=== PATIENT | female | born 1945 | race Caucasian/White ===

== ENCOUNTER 2017-12-10 11:00 | Emergency (ER) | payer MEDICARE ==
[~2017-12-10] VITALS: Ht 160 cm; Wt 45.4 kg
[~2017-12-10 11:00] MED LIST: ALBU90OI INH; AZIT250 PO; Augmentin 875-1 EACH PO; OXYACE5T PO; PRED20 PO; Prednisone10 MG PO; Prednisone20 MG PO; RANI150 PO; SPACE CHAMBER1 EACH MC; Zithromax250 MG PO
[2017-12-10] MEDS ORDERED: Mupirocin22 GM TOP (12:24)
[2017-12-10] MEDS ORDERED: Keflex500 MG PO (12:24)
== END 2017-12-10 12:28 | disposition home or self-care (01) ==
LOC: ER 11:00
DX: S00.86XA Insect bite (nonvenomous) of other part of head, initial encounter (principal); L08.9 Local infection of the skin and subcutaneous tissue, unspecified; J44.9 Chronic obstructive pulmonary disease, unspecified; F17.200 Nicotine dependence, unspecified, uncomplicated; Z79.51 Long term (current) use of inhaled steroids; W57.XXXA Bitten or stung by nonvenomous insect and other nonvenomous arthropods, initial encounter
CPT/HCPCS: 87070; 87075; 87205; 99282

== ENCOUNTER → 2021-06-08 | Outpatient (CLI) | payer MEDICARE ==
[~2021-06-08] MED LIST changes: +Keflex500 MG PO; +Mupirocin22 GM TOP
== END | disposition home or self-care (01) ==
LOC: LAB SHORT 12:59
DX: R35.0 Frequency of micturition (principal)
CPT/HCPCS: 87077; 87086; 87186

== ENCOUNTER → 2021-08-06 | Outpatient (CLI) | payer MEDICARE, OTHER | END | disposition home or self-care (01) | LOC: LAB 11:39 → LAB SHORT 11:39 | DX: R30.9 Painful micturition, unspecified (principal) | CPT/HCPCS: 87077; 87086; 87186 ==

== ENCOUNTER 2021-08-13 16:44 | Emergency (ER) | payer MEDICARE, OTHER ==
[~2021-08-13] VITALS: Ht 160 cm; Wt 61.2 kg
[2021-08-13] MEDS ORDERED: LISI20 PO (17:22)
[2021-08-13] MEDS ORDERED: Aspir 8181 MG PO (17:23)
[2021-08-13] MEDS ORDERED: SULFAMETHOXAZO1 EAC1 PO (17:24)
[2021-08-13 17:45] LABS: BASOPHILS ABSOLUTE AUTO 0.05 K/mm3 (0.00-0.23); BASOPHILS PERCENT AUTO 1 % (0-2); EOSINOPHILS ABSOLUTE AUTO 0.15 K/mm3 (0.00-0.68); EOSINOPHILS PERCENT AUTO 2 % (0-6); Hematocrit 36.3 % (33.0-51.0); Hemoglobin 11.5 g/dL (11.5-16.0); IMMATURE GRAN ABSOLUTE AUTO 0.02 K/mm3 (0.00-0.10); IMMATURE GRAN PERCENT AUTO 0 % (0-1); LYMPHOCYTES ABSOLUTE AUTO 1.91 K/mm3 (0.84-5.20); LYMPHOCYTES PERCENT AUTO 27 % (21-46); MONOCYTES ABSOLUTE AUTO 0.78 K/mm3 (0.16-1.47); MONOCYTES PERCENT AUTO 11 % (4-13); Mean Corpuscular HGB 32.1 pg (26.0-34.0); Mean Corpuscular HGB Conc 31.7 g/dL (31.5-36.5); Mean Corpuscular Volume 101 fL (80-100); Mean Platelet Volume 9.7 fL (9.1-12.4); NEUTROPHILS ABSOLUTE AUTO 4.11 K/mm3 (1.96-9.15); NEUTROPHILS PERCENT AUTO 59 % (41-73); Platelet Count 307 K/mm3 (150-400); RDW Coefficient Variation 11.9 % (11.7-14.2); RDW Standard Deviation 44.4 fL (35.1-46.3); Red Blood Cell Count 3.58 M/mm3 (3.80-5.20); White Blood Cell Count 7.02 K/mm3 (4.00-11.30)
[2021-08-13 18:14] LABS: Albumin, Blood 3.7 g/dL (3.4-5.0); Bilirubin, Total 0.2 mg/dL (0.1-1.0); Bun/Creatinine Ratio 25.6 (12.0-20.0); Calcium, Blood 9.3 mg/dL (8.5-10.1); Creatinine, Blood 1.21 mg/dL (0.40-1.00); Globulin, Blood 3.7 g/dL (2.2-4.0); Potassium, Blood 4.7 mmol/L (3.5-5.5); Total Protein, Blood 7.4 g/dL (6.4-8.2)
[2021-08-13] MEDS ORDERED: ELIQUIS5 M2 PO (22:08)
== END 2021-08-13 22:22 | disposition home or self-care (01) ==
LOC: ER 16:44
PROVIDERS: Physician Assistant
DX: I48.91 Unspecified atrial fibrillation (principal); I95.9 Hypotension, unspecified; J44.9 Chronic obstructive pulmonary disease, unspecified; Z87.891 Personal history of nicotine dependence
CPT/HCPCS: 36415; 71045; 80053; 84484; 85025; 93005; 93010; 96365; 99285-25; A9270; J3475; J7030

== ENCOUNTER → 2021-12-07 | Outpatient (CLI) | payer MEDICARE, OTHER ==
[~2021-12-07] MED LIST changes: +Aspir 8181 MG PO; +ELIQUIS5 M2 PO; +LISI20 PO; +SULFAMETHOXAZO1 EAC1 PO
[2021-12-07 19:42] LABS: BASOPHILS ABSOLUTE AUTO 0.04 K/mm3 (0.00-0.23); BASOPHILS PERCENT AUTO 1 % (0-2); EOSINOPHILS ABSOLUTE AUTO 0.17 K/mm3 (0.00-0.68); EOSINOPHILS PERCENT AUTO 3 % (0-6); Hemoglobin 10.4 g/dL (11.5-16.0); IMMATURE GRAN ABSOLUTE AUTO 0.04 K/mm3 (0.00-0.10); IMMATURE GRAN PERCENT AUTO 1 % (0-1); LYMPHOCYTES ABSOLUTE AUTO 2.08 K/mm3 (0.84-5.20); LYMPHOCYTES PERCENT AUTO 32 % (21-46); MONOCYTES ABSOLUTE AUTO 0.78 K/mm3 (0.16-1.47); MONOCYTES PERCENT AUTO 12 % (4-13); Mean Corpuscular HGB 31.6 pg (26.0-34.0); Mean Corpuscular HGB Conc 29.7 g/dL (31.5-36.5); Mean Corpuscular Volume 106 fL (80-100); Mean Platelet Volume 9.6 fL (9.1-12.4); NEUTROPHILS ABSOLUTE AUTO 3.39 K/mm3 (1.96-9.15); NEUTROPHILS PERCENT AUTO 52 % (41-73); Platelet Count 365 K/mm3 (150-400); RDW Coefficient Variation 12.5 % (11.7-14.2); RDW Standard Deviation 48.9 fL (35.1-46.3); Red Blood Cell Count 3.29 M/mm3 (3.80-5.20)
[2021-12-07 19:56] LABS: Albumin, Blood 3.5 g/dL (3.4-5.0); Bilirubin, Total 0.2 mg/dL (0.1-1.0); Bun/Creatinine Ratio 36.2 (12.0-20.0); Calcium, Blood 10.1 mg/dL (8.5-10.1); Creatinine, Blood 0.66 mg/dL (0.40-1.00); Globulin, Blood 3.4 g/dL (2.2-4.0); Potassium, Blood 5.3 mmol/L (3.5-5.5); Total Protein, Blood 6.9 g/dL (6.4-8.2)
== END | disposition home or self-care (01) ==
LOC: LAB SHORT 17:00 → LAB 17:00
PROVIDERS: Family Medicine; Student in an Organized Health Care Education/Training Program
DX: R60.0 Localized edema (principal); Z79.899 Other long term (current) drug therapy
CPT/HCPCS: 80053; 83880; 85025

== ENCOUNTER 2022-03-08 11:57 | Inpatient (IN) | payer MEDICARE, OTHER ==
[~2022-03-08] VITALS: Ht 160 cm; Wt 64.0 kg
[2022-03-08 13:43] LABS: BASOPHILS PERCENT AUTO 1 % (0-2); EOSINOPHILS ABSOLUTE AUTO 0.02 K/mm3 (0.00-0.68); EOSINOPHILS PERCENT AUTO 0 % (0-6); Hematocrit 33.4 % (33.0-51.0); Hemoglobin 10.5 g/dL (11.5-16.0); IMMATURE GRAN ABSOLUTE AUTO 0.15 K/mm3 (0.00-0.10); IMMATURE GRAN PERCENT AUTO 1 % (0-1); LYMPHOCYTES ABSOLUTE AUTO 1.01 K/mm3 (0.84-5.20); LYMPHOCYTES PERCENT AUTO 5 % (21-46); MONOCYTES ABSOLUTE AUTO 2.61 K/mm3 (0.16-1.47); MONOCYTES PERCENT AUTO 14 % (4-13); Mean Corpuscular HGB 31.3 pg (26.0-34.0); Mean Corpuscular HGB Conc 31.4 g/dL (31.5-36.5); Mean Corpuscular Volume 100 fL (80-100); Mean Platelet Volume 10.2 fL (9.1-12.4); NEUTROPHILS ABSOLUTE AUTO 15.14 K/mm3 (1.96-9.15); NEUTROPHILS PERCENT AUTO 80 % (41-73); Platelet Count 396 K/mm3 (150-400); RDW Coefficient Variation 12.3 % (11.7-14.2); RDW Standard Deviation 44.9 fL (35.1-46.3); Red Blood Cell Count 3.35 M/mm3 (3.80-5.20); White Blood Cell Count 19.03 K/mm3 (4.00-11.30)
[2022-03-08 13:53] LABS: Albumin, Blood 3.1 g/dL (3.4-5.0); Albumin/Globulin Ratio 0.6 (0.8-1.8); Bilirubin, Total 0.2 mg/dL (0.1-1.0); Bun/Creatinine Ratio 58.8 (12.0-20.0); Calcium, Blood 10.1 mg/dL (8.5-10.1); Creatinine, Blood 0.83 mg/dL (0.40-1.00); Globulin, Blood 5.2 g/dL (2.2-4.0); Potassium, Blood 4.9 mmol/L (3.5-5.5); Total Protein, Blood 8.3 g/dL (6.4-8.2)
[2022-03-08 14:26] LABS: PCO2 Arterial 60.6 mmHg (35-45); PO2 Arterial 58.2 mmHg (80-100)
[2022-03-08 14:27] LABS: pH Blood Arterial 7.29 (7.35-7.45)
[2022-03-08 15:05] LABS: Influenza A, PCR NEGATIVE (NEGATIVE); Influenza B, PCR NEGATIVE (NEGATIVE); Resp Syncytial Virus, PCR NEGATIVE (NEGATIVE); SARS-Cov-2 (COVID-19) PCR, MMC NEGATIVE (NEGATIVE)
--- NOTE | 2022-03-08 21:14 | NUR ---
PT ARRIVES TO ICU 3 VIA GURNEY, INITIALLY ORDERED ICU STATUS HOWEVER WITH CARDIZEM INFUSING PT'S HEART RATE IS NOTED TO HAVE IMPROVED TO LOW 100S AND PRESSURES IMPROVED, MAINTAINING MAP, PULSES PRESENT X 4 EXTREMITIES. PT STATES THAT BREATHING FEELS IMPROVED WITH BIPAP IN USE, PRESSURES 14/6, FIO2 35% SATS MID 90S, LUNGS WITH DIM BASES BILAT. PT DENIES CP/PRESSURE, DENIES N/V. CAREGIVER REPORTS THAT SHE HAS LIVED WITH PT FOR APPROXIMATELY 10 MONTHS AND HAS BEEN UNABLE TO CONVINCE PT TO SHOWER/BATHE EVEN ONCE IN THE TIME THAT SHE HAS LIVED WITH HER, REQUESTS THAT NURSING STAFF MAKE BATHING A PRIORITY "I THINK SHE WILL DO IT FOR YOU AND IT WON'T BE BIG OF A DEAL" DISCUSSED VITALS AND CARDIZEM GTT WITH DR CERDA AT TIME OF PT ARRIVAL TO ICU AND ORDERS WERE OBTAINED TO TRANSFER TO PCU. EXPLAINED CHANGE OF LOCATION TO PT AND CAREGIVER.
--- NOTE | 2022-03-08 22:10 | NUR ---
TRANSFER TO PCU7 PT ARRIVED TO PCU7 AT APPROXIMATELY 2145. PT A&Ox4, ORIENTED TO CALL LIGHT, BED IN LOWEST POSITION. SpO2> 92% ON BIPAP 14/6 35%FiO2, DENIES SOB, RR IN 20's. AFIB 80-90's, BP SOFT, SBP 90's MAP> 65, CARDIZEM GTT TITRATED DOWN TO 5ml/hr AND THEN PAUSED D/T LOW SBP. PT DENIES CP/PRESSURE, DIZZINESS, N/V.
[2022-03-09 03:58] LABS: Base Excess Venous 4.2 mmol/L; Bicarbonate Venous 26.8 mmol/L (24.0-30.0); PCO2 Venous 58.4 mmHg (38-42); pH Blood Venous 7.32 (7.34-7.37)
[2022-03-09 04:38] LABS: Hemoglobin 9.6 g/dL (11.5-16.0); Mean Corpuscular HGB 31.1 pg (26.0-34.0); Mean Corpuscular Volume 100 fL (80-100); Mean Platelet Volume 10.2 fL (9.1-12.4); Platelet Count 376 K/mm3 (150-400); RDW Coefficient Variation 12.2 % (11.7-14.2); RDW Standard Deviation 44.9 fL (35.1-46.3); Red Blood Cell Count 3.09 M/mm3 (3.80-5.20); White Blood Cell Count 15.76 K/mm3 (4.00-11.30)
[2022-03-09 04:58] LABS: Bun/Creatinine Ratio 54.7 (12.0-20.0); Calcium, Blood 9.7 mg/dL (8.5-10.1); Creatinine, Blood 0.82 mg/dL (0.40-1.00); Potassium, Blood 4.9 mmol/L (3.5-5.5); Thyroid Stimulating Hormone 1.69 uIU/mL (0.360-4.800); Thyroxine (T4) 8.7 ug/dL (4.8-13.9)
--- NOTE | 2022-03-09 05:09 | NUR ---
SHIFT SUMMARY PT A&Ox4, CALLS AND COMMUNICATES NEEDS APPROPRIATELY. SpO2> 92% ON BIPAP 14/6 35%FiO2, DENIES SOB. PT CONVERTED TO SINUS IN 70's AT APPROXIMATELY 0200. BP SOFT WITH SBP MAINTAINING IN 90's, MAP> 65, PT ASYMPTOMATIC. CARDIZEM GTT STILL IN STANDBY. PT ABLE TO REST COMFORTABLY THROUGHOUT THE NIGHT, NO ACUTE EVENTS. WILL REPORT TO DAY SHIFT RN.
--- NOTE | 2022-03-09 08:10 | NUR ---
AM ASSESSMENT: Pt resting in bed with BIPAP on 10/01 with FIO2 of 35%. Biox 95%. LS coarse with exp wheezing. Pt requesting break from BIPAP. Placed on 4L per N/C, her home dose. Tolerating well and biox remaining >95%. BP stable. HR reg with tele showing NSR. BT positive. Pulses palp. Attends in place. Pt denies pain. Pt has very dry, flakey skin with visible dirt on the bottom of feet. Hair matted and dirty. Will give full bed bath today. Pt very pleasant and cooperative. Call light in reach. Will continue to monitor.
[2022-03-09] MEDS ORDERED: LISI20 PO (12:40)
[2022-03-09] MEDS ORDERED: ELIQUIS2.5 MG PO (12:40)
[2022-03-09] MEDS ORDERED: ALBU90OI INH (12:41)
[2022-03-09] MEDS ORDERED: FOLI1 PO (12:42)
[2022-03-09] MEDS ORDERED: CENTRUM SILVER1 EAC2 PO (12:42)
[2022-03-09] MEDS ORDERED: ASPI325 PO (12:43)
[2022-03-09] MEDS ORDERED: TRELEGY ELLIPT1 EAC1 INH (16:50)
--- NOTE | 2022-03-09 18:44 | NUR ---
SHift Summary: Pt sitting up at edge of bed at this time finishing dinner. Pt has done well this shift. Has been able to be on her home O2 of 4L per NC for the majority of the day. Pt came off of Bipap at around 0830 this AM, went back on around 1145, then came back off around 1400 and remained off the rest of the shift. Pt was up to shower this afternoon with 2 person assist. States that she feels much better after her shower. HR has remained in a NSR. BP has remained soft but stable. Pt denies other needs this shift. No other changes. Will reoprt to night RN.
[2022-03-10 04:05] LABS: BASOPHILS ABSOLUTE AUTO 0.07 K/mm3 (0.00-0.23); BASOPHILS PERCENT AUTO 0 % (0-2); EOSINOPHILS ABSOLUTE AUTO 0.06 K/mm3 (0.00-0.68); EOSINOPHILS PERCENT AUTO 0 % (0-6); Hematocrit 27.9 % (33.0-51.0); Hemoglobin 8.7 g/dL (11.5-16.0); IMMATURE GRAN ABSOLUTE AUTO 0.75 K/mm3 (0.00-0.10); IMMATURE GRAN PERCENT AUTO 4 % (0-1); LYMPHOCYTES ABSOLUTE AUTO 0.88 K/mm3 (0.84-5.20); LYMPHOCYTES PERCENT AUTO 5 % (21-46); MONOCYTES ABSOLUTE AUTO 1.27 K/mm3 (0.16-1.47); MONOCYTES PERCENT AUTO 7 % (4-13); Mean Corpuscular HGB 31.3 pg (26.0-34.0); Mean Corpuscular HGB Conc 31.2 g/dL (31.5-36.5); Mean Corpuscular Volume 100 fL (80-100); Mean Platelet Volume 9.5 fL (9.1-12.4); NEUTROPHILS ABSOLUTE AUTO 15.22 K/mm3 (1.96-9.15); NEUTROPHILS PERCENT AUTO 83 % (41-73); Platelet Count 409 K/mm3 (150-400); RDW Coefficient Variation 12.2 % (11.7-14.2); RDW Standard Deviation 45.8 fL (35.1-46.3); Red Blood Cell Count 2.78 M/mm3 (3.80-5.20); White Blood Cell Count 18.25 K/mm3 (4.00-11.30)
[2022-03-10 04:36] LABS: Albumin, Blood 2.6 g/dL (3.4-5.0); Albumin/Globulin Ratio 0.6 (0.8-1.8); Bilirubin, Total 0.5 mg/dL (0.1-1.0); Bun/Creatinine Ratio 64.3 (12.0-20.0); Calcium, Blood 9.8 mg/dL (8.5-10.1); Creatinine, Blood 0.78 mg/dL (0.40-1.00); Globulin, Blood 4.2 g/dL (2.2-4.0); Magnesium, Blood 2.4 mg/dL (1.6-2.4); Phosphorus, Blood 2.6 mg/dL (2.5-4.9); Potassium, Blood 4.7 mmol/L (3.5-5.5); Total Protein, Blood 6.8 g/dL (6.4-8.2)
--- NOTE | 2022-03-10 06:26 | NUR ---
NOC SHIFT SUMMARY PT ORIENTED X4, ANXIOUS ESPECIALLY WITH AMBULATION AND SOA. SR/PAC AND AFIB BRIEFLY ON TELEMETRY. RATE CONTROLLED. NO COMPLAINTS OF PAIN. REMAINS SR THIS AM. ALTERNATED BETWEEN BIPAP 14/35% AND 4L NC. INCREASED WOB AT START OF SHIFT, TRIPOD POSTURE. SATS REMAINED WNL BUT PT FELT SHE WAS UNABLE TO CATCH BREATH. DR. WADE NOTIFIED AND D/C IVF PT IS TOLERATING PO. PT PLACED ON BIPAP BY RT. UP TO BSC X1, BM X1. WILL PASS ON TO DAY RN
--- NOTE | 2022-03-10 18:01 | NUR ---
ASSUMED CARE OF PT AT 0700. PT ON BIPAP THIS AM, OFF FOR A SHORT TIME FOR BREAKFAST, THEN BACK ON BIPAP UNTIL LUNCH. PT SITTING UP TO SIDE OF THE BED FOR MOST OF THE AFTERNOON, TRIPOD POSITION ON OVERBED TABLE, OFF BIPAP WITH 4L 02 VIA NC (PT'S BASELINE). PT'S CAREGIVER IN TO VISIT HER AND STATES SHE WILL BE HER TRANSPORTATION HOME, NUMBER IS ON THE PT'S WHITE BOARD. PT/OT CONSULT AND EVAL TODAY, PT ABLE TO STAND AND PIVOT TX (PT'S BASELINE). NO OTHER CHANGES IN PT CONDITION NOTED, USES CALL LIGHT FOR NEEDS, WILL CONTINUE TO MONITOR AND GIVE REPORT TO NOC SHIFT RN.
[2022-03-11 03:53] LABS: Base Excess Venous 9.5 mmol/L; Bicarbonate Venous 32.2 mmol/L (24.0-30.0); pH Blood Venous 7.44 (7.34-7.37)
[2022-03-11 04:01] LABS: Hematocrit 26.2 % (33.0-51.0); Hemoglobin 8.4 g/dL (11.5-16.0); Mean Corpuscular HGB 32.1 pg (26.0-34.0); Mean Corpuscular HGB Conc 32.1 g/dL (31.5-36.5); Mean Corpuscular Volume 100 fL (80-100); Mean Platelet Volume 9.2 fL (9.1-12.4); Platelet Count 390 K/mm3 (150-400); RDW Coefficient Variation 12.3 % (11.7-14.2); RDW Standard Deviation 45.1 fL (35.1-46.3); Red Blood Cell Count 2.62 M/mm3 (3.80-5.20); White Blood Cell Count 15.83 K/mm3 (4.00-11.30)
[2022-03-11 04:25] LABS: Albumin, Blood 2.4 g/dL (3.4-5.0); Albumin/Globulin Ratio 0.6 (0.8-1.8); Bilirubin, Total 0.2 mg/dL (0.1-1.0); Bun/Creatinine Ratio 64.6 (12.0-20.0); Calcium, Blood 9.4 mg/dL (8.5-10.1); Creatinine, Blood 0.79 mg/dL (0.40-1.00); Globulin, Blood 3.8 g/dL (2.2-4.0); Magnesium, Blood 2.7 mg/dL (1.6-2.4); Phosphorus, Blood 3.7 mg/dL (2.5-4.9); Potassium, Blood 4.7 mmol/L (3.5-5.5); Total Protein, Blood 6.2 g/dL (6.4-8.2)
[2022-03-11 05:10] LABS: BAND PERCENT MAN 6 % (0-8); BASOPHILS PERCENT MAN 0 % (0-2); EOSINOPHILS PERCENT MAN 0 % (0-6); LYMPHOCYTES ABSOLUTE MAN 1.58 K/mm3 (0.84-5.20); LYMPHOCYTES PERCENT MAN 10 % (21-46); METAMYELOCYTE ABSOLUTE MAN 0.31 K/mm3 (0.00-0.00); METAMYELOCYTE PERCENT MAN 2 % (0-0); MONOCYTES ABSOLUTE MAN 0.63 K/mm3 (0.16-1.47); MONOCYTES PERCENT MAN 4 % (4-13); MYELOCYTE ABSOLUTE MAN 0.47 K/mm3 (0.00-0.00); MYELOCYTE PERCENT MAN 3 % (0-0); NEUTROPHILS ABSOLUTE MAN 12.82 K/mm3 (1.96-9.15); SEG NEUTROPHILS PERCENT MAN 75 % (41-73); TOTAL CELLS COUNTED 100
--- NOTE | 2022-03-11 05:28 | NUR ---
SHIFT SUMMARY ASSUMED CARE OF PT AT 2129. PT ALERT, TRIPODING IN ROOM, STATES SHE SLEEPS LIKE THIS AT HER HOUSE. ON NC 4L. RT IN ROOM TO ENCOURAGE MASK WEARING. PT AGREED TO WEAR MASK IF SHE COULD HAVE A SLEEP AID. CALL PLACED TO MD WADE. MD WADE WITH ORDERS FOR MELATONIN. PT SLEPT MOST OF NIGHT IN BED W/ MASK ON, 6L BLEED IN. WOULD DESAT TO MID 80'S WHEN MASK NEEDS ADJUSTED. CALL LIGHT IN REACH.
[2022-03-11] MEDS ORDERED: DILT120 PO (13:47)
[2022-03-11] MEDS ORDERED: CEFD300 PO (13:47)
[2022-03-11] MEDS ORDERED: Prednisone20 MG PO (13:50)
[2022-03-11] MEDS ORDERED: VISBIOME 112.51 EACH PO (13:51)
--- NOTE | 2022-03-11 14:56 | NUR ---
ASSUMED CARE OF PT AT 0700. PT DOING WELL TODAY, ON BASELINE O2, ABLE TO STAND AND PIVOT TRANSFER FROM BED TO COMMODE. PT STATES SHE FEELS COMFORTABLE GOING HOME TODAY IF DISCHARGED. DISCHARGE ORDERS RECEIVED, RX SENT TO [facility] PER PT REQUEST. PT'S CAREGIVER/TRANSPORTATION NOTIFIED AND WILL BRING IN PT'S HOME O2. 1450: PT DISCHARGED HOME VIA WHEELCHAIR, ON HOME 02 4L NC, ALL BELONGINGS SENT WITH PT. DISCHARGE INFORMATION REVIEWED WITH PT AND CAREGIVER AT BEDSIDE INCLUDING FOLLOW UP APPOINTMENTS, MEDICATION LIST, NEW MEDICATIONS AND EDUCATION. PT AND CAREGIVER VERBALIZE UNDERSTANDING AND HAVE NO QUESTIONS OR CONCERNS AT THIS TIME. NO FURTHER DISCHARGE NEEDS IDENTIFIED AT THIS TIME.
== END 2022-03-11 14:50 | disposition home or self-care (01) | DRG 193 ==
LOC: ER 11:57 → ERHOLD 17:14 → PCU 17:14 → ICUE 19:38 → PCU 21:38
PROVIDERS: Emergency Medicine; Family Medicine; Physician Assistant; ADMIT Internal Medicine
PROC: 5A09357 Assistance with Respiratory Ventilation, Less than 24 Consecutive Hours, Continuous Positive Airway Pressure (ICD-10-PCS; principal; 2022-03-08)
DX: J18.9 Pneumonia, unspecified organism (principal); J96.21 Acute and chronic respiratory failure with hypoxia; J96.22 Acute and chronic respiratory failure with hypercapnia; J44.1 Chronic obstructive pulmonary disease with (acute) exacerbation; J44.0 Chronic obstructive pulmonary disease with (acute) lower respiratory infection; I50.30 Unspecified diastolic (congestive) heart failure; I48.91 Unspecified atrial fibrillation; I95.9 Hypotension, unspecified; F41.9 Anxiety disorder, unspecified; Z20.822 Contact with and (suspected) exposure to COVID-19; F17.210 Nicotine dependence, cigarettes, uncomplicated; K44.9 Diaphragmatic hernia without obstruction or gangrene; K21.9 Gastro-esophageal reflux disease without esophagitis; Z79.51 Long term (current) use of inhaled steroids; Z99.81 Dependence on supplemental oxygen; Z79.82 Long term (current) use of aspirin; Z79.811 Long term (current) use of aromatase inhibitors; Z79.899 Other long term (current) drug therapy
CPT/HCPCS: 0241U; 36415; 36600; 71046; 80048; 80053; 82803; 83605; 83690; 83735; 83880; 84100; 84436; 84443; 84484; 85025; 85027; 87040; 93005; 93010; 93308; 93321; 94640; 94660; 94664; 94760; 94762; 96365; 96366; 96375; 96376; 97110; 97162; 97165; 97530; 97535; 99285-25; A9270; J0153; J0456; J0696; J1650; J2930; J7030; J7050; J7120

== ENCOUNTER 2023-03-11 11:59 | Inpatient (IN) | payer MEDICARE, OTHER ==
[~2023-03-11] VITALS: Ht 157.5 cm; Wt 47.6 kg
[2023-03-11] VITALS (8 sets, daily range): BP systolic 96–133; BP diastolic 49–89
[~2023-03-11 11:59] MED LIST changes: +ASPI325 PO; +CEFD300 PO; +CENTRUM SILVER1 EAC2 PO; +DILT120 PO; +ELIQUIS2.5 MG PO; +FOLI1 PO; +TRELEGY ELLIPT1 EAC1 INH; +VISBIOME 112.51 EACH PO
[2023-03-11 12:55] LABS: Bicarbonate Venous 32.7 mmol/L (24.0-30.0); PCO2 Venous 58.1 mmHg (38-42); pH Blood Venous 7.39 (7.34-7.37)
[2023-03-11 12:55] LABS: BASOPHILS ABSOLUTE AUTO 0.03 K/mm3 (0.00-0.23); BASOPHILS PERCENT AUTO 0 % (0-2); EOSINOPHILS ABSOLUTE AUTO 0.18 K/mm3 (0.00-0.68); EOSINOPHILS PERCENT AUTO 2 % (0-6); Hematocrit 21.2 % (33.0-51.0); Hemoglobin 6.5 g/dL (11.5-16.0); IMMATURE GRAN ABSOLUTE AUTO 0.03 K/mm3 (0.00-0.10); IMMATURE GRAN PERCENT AUTO 0 % (0-1); LYMPHOCYTES ABSOLUTE AUTO 2.55 K/mm3 (0.84-5.20); LYMPHOCYTES PERCENT AUTO 28 % (21-46); MONOCYTES ABSOLUTE AUTO 0.81 K/mm3 (0.16-1.47); MONOCYTES PERCENT AUTO 9 % (4-13); Mean Corpuscular HGB 32.7 pg (26.0-34.0); Mean Corpuscular HGB Conc 30.7 g/dL (31.5-36.5); Mean Corpuscular Volume 107 fL (80-100); Mean Platelet Volume 10.1 fL (9.1-12.4); NEUTROPHILS ABSOLUTE AUTO 5.45 K/mm3 (1.96-9.15); NEUTROPHILS PERCENT AUTO 60 % (41-73); Platelet Count 278 K/mm3 (150-400); RDW Coefficient Variation 13.2 % (11.7-14.2); RDW Standard Deviation 50.8 fL (35.1-46.3); Red Blood Cell Count 1.99 M/mm3 (3.80-5.20); White Blood Cell Count 9.05 K/mm3 (4.00-11.30)
[2023-03-11 13:18] LABS: Albumin, Blood 3.5 g/dL (3.4-5.0); Albumin/Globulin Ratio 1.1 (0.8-1.8); Bilirubin, Total 0.2 mg/dL (0.1-1.0); Bun/Creatinine Ratio 41.8 (12.0-20.0); Calcium, Blood 9.9 mg/dL (8.5-10.1); Creatinine, Blood 1.34 mg/dL (0.40-1.00); Globulin, Blood 3.1 g/dL (2.2-4.0); Magnesium, Blood 2.1 mg/dL (1.6-2.4); Potassium, Blood 5.8 mmol/L (3.5-5.5); Total Protein, Blood 6.6 g/dL (6.4-8.2)
[2023-03-11 14:08] LABS: International Normalized Ratio 1.06; Prothrombin Time Results 11.1 Sec (9.7-11.5)
[2023-03-11 15:21] LABS: Adenovirus Not Detected (NOT DETECT)
[2023-03-11 15:22] LABS: Bordetella pertussis Not Detected (NOT DETECT); Chlamydophila pneumoniae Not Detected (NOT DETECT); Coronavirus 229E Not Detected (NOT DETECT); Coronavirus HKU1 Not Detected (NOT DETECT); Coronavirus NL63 Not Detected (NOT DETECT); Coronavirus OC43 Not Detected (NOT DETECT); Human Metapneumovirus Not Detected (NOT DETECT); Human Rhinovirus/Enterovirus Not Detected (NOT DETECT); Influenza A/2009-H1 Not Detected (NOT DETECT); Influenza A/H1 Not Detected (NOT DETECT); Influenza A/H3 Not Detected (NOT DETECT); Influenza B Not Detected (NOT DETECT); Mycoplasma pneumoniae Not Detected (NOT DETECT); Parainfluenza Virus 1 Not Detected (NOT DETECT); Parainfluenza Virus 2 Not Detected (NOT DETECT); Parainfluenza Virus 3 Not Detected (NOT DETECT); Parainfluenza Virus 4 Not Detected (NOT DETECT); Respiratory Syncytial Virus Not Detected (NOT DETECT); SARS-Cov-2 (COVID-19), BioFire Not Detected (NOT DETECT)
--- NOTE | 2023-03-11 18:54 | NUR ---
PT ARRIVED IN THE ROOM FROM [facility], REPORT RECEIVED FROM MEHRDAD US. PT WAS TRANSFERRED TO BED VIA SLIDE SHEET. PT ALERT AND ORIENTED X3, FORGETFUL AT TIMES. PT IS HERE FOR ACUTE RESPI FAILURE PT ON 5L OF O2 (HOME O2). VITALS HRR ST 90-100'S, SBP 100'S, SATS ABOVE 95% ON 5L OF O2 SOME SOB WITH EXERTION. AFEBRILE. UPON ARRIVAL PT REQUESTED TO USE BEDSIDE COMMODE PT ABLE TO TRANSFER VIA 1PA STAND AND TRANSFER WITH COUPLE STEPS, PT A LITTLE UNSTEADY AND WEAK. PT STATED SHE SMOKES 4 CIGARETTES A DAY, NICOTINE PATCH ORDERED AND PLACED. PT HAD A BOWEL MOVEMENT FORMED BLACK BROWN IN COLOR AND VOIDED IN THE COMMODE URINE WAS DARK. PT HAS A LOT OF DRY AND SKIN PEELING OFF PT AGREED TO GET HER IN THE SHOWER PT STATED SHE HASNT SHOWERED IN 6 MONTHS. PT GOT BACK IN BED, 1PRBC WAS WAS INFUSED. PT ATE DINNER WITH NO ISSUES. SCD'S PLACED. PT NOW RESTING IN BED WITH CALL LIGHTS IN REACH, WILL REPORT TO ONCOMING SHIFT
--- NOTE | 2023-03-11 20:49 | NUR ---
ASSUMED PT CARE FROM CHRISTIANA RN ON HI. A&OX4, APPEARS FORGETFUL AT TIMES. DENIES CHEST PAIN/PRESSURE. HR SR IN 90'S. BP STABLE, SEE RECORDED VITAL SIGNS. O2 SATS > 92% ON 5 LPM, BASELINE PER PT. REPORTS HAVING " A LITTLE BIT" OF SOB, DOES NOT APPEAR IN ANY DISTRESS. WILL MONITOR. LUNG JOHNS CLEAR. DENIES ANY NASUEA. CALL LIGHT IN REACH. BED IN LOW POSITION. BED ALARM ON.
[2023-03-12] VITALS (7 sets, daily range): BP systolic 83–122; BP diastolic 39–57
[2023-03-12 03:46] LABS: Magnesium, Blood 1.9 mg/dL (1.6-2.4)
[2023-03-12 03:48] LABS: Alanine Aminotransfer (ALT/SGP 15 U/L (12-78); Alk Phos 46 U/L (50-136); Anion Gap 3 mmol/L (6-16); Aspartate Aminotrans (AST/SGOT 16 U/L (12-37); Bilirubin, Total <0.1 mg/dL (0.1-1.0); Blood Urea Nitrogen 51 mg/dL (8-24); Bun/Creatinine Ratio 50.5 (12.0-20.0); CO2, Blood 33 mmol/L (21-32); Calcium, Blood 8.9 mg/dL (8.5-10.1); Chloride, Blood 108 mmol/L (98-108); Creatinine, Blood 1.01 mg/dL (0.40-1.00); Globulin, Blood 2.9 g/dL (2.2-4.0); Glomerular Filtration Rate 57 (60-); Glucose, Blood 161 mg/dL (70-99); Potassium, Blood 5.1 mmol/L (3.5-5.5); Sodium, Blood 144 mmol/L (136-145); Total Protein, Blood 5.9 g/dL (6.4-8.2)
[2023-03-12 05:19] LABS: BASOPHILS ABSOLUTE AUTO 0.01 K/mm3 (0.00-0.23); BASOPHILS PERCENT AUTO 0 % (0-2); EOSINOPHILS PERCENT AUTO 0 % (0-6); Hematocrit 23.7 % (33.0-51.0); Hemoglobin 7.3 g/dL (11.5-16.0); IMMATURE GRAN ABSOLUTE AUTO 0.05 K/mm3 (0.00-0.10); IMMATURE GRAN PERCENT AUTO 1 % (0-1); LYMPHOCYTES ABSOLUTE AUTO 1.04 K/mm3 (0.84-5.20); LYMPHOCYTES PERCENT AUTO 11 % (21-46); MONOCYTES ABSOLUTE AUTO 0.19 K/mm3 (0.16-1.47); MONOCYTES PERCENT AUTO 2 % (4-13); Mean Corpuscular HGB 30.7 pg (26.0-34.0); Mean Corpuscular HGB Conc 30.8 g/dL (31.5-36.5); Mean Platelet Volume 10.8 fL (9.1-12.4); NEUTROPHILS ABSOLUTE AUTO 7.83 K/mm3 (1.96-9.15); NEUTROPHILS PERCENT AUTO 86 % (41-73); Platelet Count 230 K/mm3 (150-400); RDW Standard Deviation 65.4 fL (35.1-46.3); Red Blood Cell Count 2.38 M/mm3 (3.80-5.20); White Blood Cell Count 9.12 K/mm3 (4.00-11.30)
[2023-03-12 05:21] LABS: Mean Corpuscular Volume 100 fL (80-100)
--- NOTE | 2023-03-12 05:31 | NUR ---
SHIFT SUMMARY: NO ACUTE CHANGES NOTED DURING THIS SHIFT. O2 LPM DECREASED TO 3 LPM WHILE SLEEPING DUE TO SATS IN HIGH 90'S, PT CONTIUES TO SAT > 92%. UP TO BSC WITH 1 ASSIST TO VOID CLEAR, YELLOW URINE. SOB WITH EXERTION, RESOLVES WHEN RETURNED TO BED. CALL LIGHT IN REACH. IN BED LOW POSITION. BED ALARM ON.
--- NOTE | 2023-03-12 12:57 | NUR ---
CARE NOTE BP NOTED TO BE 88/47 WITH MAP OF 59, DR. FRIEND MADE AWARE SO MEDICATION ADJUSTMENTS CAN BE MADE APPROPRIATE/NECESSARY. PT DENIES FEELING LIGHTHEADED/DIZZY. WILL CONTINUE TO MONITOR.
[2023-03-12] MEDS ORDERED: CARTIA XT120 M9 PO (14:31)
[2023-03-12] MEDS ORDERED: Ventolin/Prove6.7 GM (14:40)
[2023-03-12 16:03] LABS: Percent Saturation 17.9 % (15.0-50.0)
[2023-03-12 16:38] LABS: Thyroid Stimulating Hormone 1.19 uIU/mL (0.360-4.800)
--- NOTE | 2023-03-12 17:26 | NUR ---
SHIFT SUMMARY PT IS ALERT AND ORIENTED X 4 BUT FORGETFUL AT TIMES. SHE IS ABLE TO MAKE HER NEEDS KNOWN. VSS, SPO2 MAINTAINED 92-95% VIA 3L NC, PT NOTED TO USE 5L NC AT BASELINE. HR NOTED TO BE SINUS RYTHM 80-90 PER TELE MONITORING. SHE HAS DENIED FEELINGS OF CHEST PAIN/PRESSURE, NAUSEA/VOMITTING AND DIZZINESS. SHE REPORTED FEELING SOB WHICH IS SIMILAR TO HER BASELINE. SHE IS A SBA W/ FWW TO BEDSIDE COMMODE AND APPEARS RATHER WEAK. SHE WAS ENCOURAGED BY THIS RN TO SIT UP IN CHAIR, PARTICULARLY FOR MEALS AND REFUSED. SHE WAS EDUCATED BY THIS RN REGARDING ACTIVITY AND DECONDITIONING WELL PREVENTION OF SKIN BREAKDOWN BUT DENIED WANTING TO SIT UP IN CHAIR HOWEVER, SHE DID SIT UP AT THE EDGE OF THE BED. SHE EXPRESSED CONCERNS REGARDING GOING HOME AND NOT HAVING A RELIABLE CAREGIVER, DR. SOW MADE AWARE AND INFORMATICS EDUCATOR CONSULT PLACED. THE PT REPORTED THAT SHE DOES NOT PAY HER CURRENT CAREGIVER BUT THEY HAVE A LEGAL/NOTARIZED AGREEMENT THAT THE CAREGIVER IS TO PROVIDE ADEQUATE CARE AND THEN WHEN THE PT PASSES, THE CAREGIVER WILL RECEIVE HER HOUSE. IV IS SALINE LOCKED. PAIN IN LOW BACK WAS REPORTED, PLEASE SEE EMAR FOR PAIN MANAGEMENT. CALL LIGHT IS W/IN REACH.
[2023-03-13] VITALS (8 sets, daily range): BP systolic 71–117; BP diastolic 32–64
[2023-03-13 01:27] LABS: Stool Occult Blood Guaiac 1 Pos (Neg)
[2023-03-13 02:57] LABS: Source, Urine Clean Catch
[2023-03-13 03:19] LABS: Bilirubin, Urine Neg (Neg); Blood, Urine 5+ (Neg); Glucose Qualitative, Urine Neg (Neg); Ketones, Urine Neg (Neg); Leukocyte Esterase, Urine 1+ (Neg); Nitrite, Urine Neg (Neg); Protein, Urine 1+ (Neg); Urobilinogen, Urine NORM (Normal)
[2023-03-13 04:11] LABS: BASOPHILS ABSOLUTE AUTO 0.01 K/mm3 (0.00-0.23); BASOPHILS PERCENT AUTO 0 % (0-2); EOSINOPHILS PERCENT AUTO 0 % (0-6); Hematocrit 20.1 % (33.0-51.0); Hemoglobin 6.3 g/dL (11.5-16.0); IMMATURE GRAN ABSOLUTE AUTO 0.12 K/mm3 (0.00-0.10); IMMATURE GRAN PERCENT AUTO 1 % (0-1); LYMPHOCYTES ABSOLUTE AUTO 0.65 K/mm3 (0.84-5.20); LYMPHOCYTES PERCENT AUTO 3 % (21-46); MONOCYTES ABSOLUTE AUTO 0.53 K/mm3 (0.16-1.47); MONOCYTES PERCENT AUTO 3 % (4-13); Mean Corpuscular HGB 30.9 pg (26.0-34.0); Mean Corpuscular HGB Conc 31.3 g/dL (31.5-36.5); Mean Corpuscular Volume 99 fL (80-100); Mean Platelet Volume 10.3 fL (9.1-12.4); NEUTROPHILS ABSOLUTE AUTO 17.82 K/mm3 (1.96-9.15); NEUTROPHILS PERCENT AUTO 93 % (41-73); Platelet Count 202 K/mm3 (150-400); RDW Coefficient Variation 17.6 % (11.7-14.2); Red Blood Cell Count 2.04 M/mm3 (3.80-5.20); White Blood Cell Count 19.13 K/mm3 (4.00-11.30)
[2023-03-13 04:32] LABS: Anion Gap 3 mmol/L (6-16); Blood Urea Nitrogen 45 mg/dL (8-24); Bun/Creatinine Ratio 43.7 (12.0-20.0); CO2, Blood 34 mmol/L (21-32); Calcium, Blood 8.9 mg/dL (8.5-10.1); Chloride, Blood 108 mmol/L (98-108); Creatinine, Blood 1.03 mg/dL (0.40-1.00); Glomerular Filtration Rate 56 (60-); Glucose, Blood 153 mg/dL (70-99); Phosphorus, Blood 3.7 mg/dL (2.5-4.9); Potassium, Blood 4.3 mmol/L (3.5-5.5); Sodium, Blood 145 mmol/L (136-145)
[2023-03-13 04:49] LABS: Appearance, Urine Clear (Clear); Color, Urine Yellow (P-Yellow)
[2023-03-13 04:50] LABS: Amorphous Light (0-Heavy); Bacteria Few /hpf; Red Blood Cells, Urine 0-2 /hpf (0-2); Squamous Epithelial Cells Few /hpf (Few)
[2023-03-13 04:51] LABS: Granular Casts 0-2 /lpf (0)
--- NOTE | 2023-03-13 10:46 | NUR ---
CARE NOTE [id number] REQUESTED FROM PHARMACY BY THIS RN AT APPROX. 1040. PT ENCOURAGED TO PERFORM CERTAIN ADL'S SUCH REPOSITIONING PILLOWS BEHIND HER HEAD AND REACHING FOR HER SIDE TABLE WHICH IS W/IN REACH. CALL LIGHT IN PLACE, PT IS NOW BACK IN BED.
[2023-03-13 12:55] LABS: Hematocrit 27.4 % (33.0-51.0); Hemoglobin 9.4 g/dL (11.5-16.0)
--- NOTE | 2023-03-13 17:01 | NUR ---
SHIFT SUMMARY PT IS ALERT TO SELF, DAY, PLACE BUT FORGETFUL TO SITUATION. WHEN SHE WOKE UP FROM HER AFTERNOON NAP SHE STATED "YOU'RE THE FIRST PERSON THAT'S BEEN IN HERE ALL DAY," BUT WAS ABLE TO ANSWER OTHER ORIENTATION QUESTIONS APPROPRIATELY. THE CAREGIVER THAT THE PT REPORTED HAVING LEFT FOR VACATION W/OUT PROVIDING REPLACEMENT IS CURRENTLY AT THE BEDSIDE. THIS RN WENT INTO PT ROOM TO CHECK IN AND THE PT AND HER CAREGIVER APPEARED TO BE HAVING A CONVERSATION PERTAINING TO HER STATUS. VSS HAVE BEEN STABLE T/O SHIFT. 1 UNIT OF PRBC'S TRANSFUSED PER ORDERS. PG IN JACKIE IS SALINE LOCKED. L FOREARM IV INFILTRATED DURING PRBC INFUSION, FOREARM APPEARS BRUISED BUT PT DENIES PAIN. PT HAS BEEN UP TO BEDSIDE COMMODE TO VOID, BLACK SMEARS NOTED IN ATTENDS PRIOR TO ATTENDS CHANGE. MEPILEX DRESSING IS IN PLACE OVER COCCYX. ABRASION ON R HIP/BUTTOCK AREA IS ALSO IN PLACE AND IS D/C/I AND WAS REPLACED BY THIS RN. PT HAS BEEN ENCOURAGED TO SIT UP IN CHAIR BUT REFUSES. SHE HAD 1 FORMED SMALL BLACK BM TODAY. CAREGIVER HAS NOW LEFT AND PT IS NOW SITTING UP IN BED, CALL LIGHT IN REACH.
--- NOTE | 2023-03-13 18:58 | NUR ---
CARE NOTE AT APPROX. 1840 THIS RN NOTICED CALL LIGHT ON PCU 13, THIS RN WAS WALKING INTO DIFFERENT PT ROOM TO RESPOND TO MORE EMERGENT NEEDS AND THEN THIS RN HEARD PT IN PCU 13 YELL OUT "HELP." THIS RN RAN INTO PT ROOM AND PT STATED THAT SHE HAD TO PEE. FOR THE SECOND TIME THIS RN EDUCATED THE PT ON APPROPRIATE CALL LIGHT USE AND NOT TO CALL OUT FOR HELP UNLESS IT IS AN EMERGANCY, THAT YELLING HELP TO PEE IS INAPPROPRIATE AND THAT STAFF MEMBERS RESPOND TO CALL LIGHTS QUICKLY THEY CAN.
[2023-03-14] VITALS (7 sets, daily range): BP systolic 91–142; BP diastolic 43–61
[2023-03-14 05:02] LABS: BASOPHILS ABSOLUTE AUTO 0.02 K/mm3 (0.00-0.23); BASOPHILS PERCENT AUTO 0 % (0-2); EOSINOPHILS PERCENT AUTO 0 % (0-6); Hematocrit 24.8 % (33.0-51.0); Hemoglobin 8.1 g/dL (11.5-16.0); IMMATURE GRAN ABSOLUTE AUTO 0.14 K/mm3 (0.00-0.10); IMMATURE GRAN PERCENT AUTO 1 % (0-1); LYMPHOCYTES ABSOLUTE AUTO 0.53 K/mm3 (0.84-5.20); LYMPHOCYTES PERCENT AUTO 3 % (21-46); MONOCYTES ABSOLUTE AUTO 0.51 K/mm3 (0.16-1.47); MONOCYTES PERCENT AUTO 3 % (4-13); Mean Corpuscular HGB 31.6 pg (26.0-34.0); Mean Corpuscular HGB Conc 32.7 g/dL (31.5-36.5); Mean Corpuscular Volume 97 fL (80-100); Mean Platelet Volume 10.5 fL (9.1-12.4); NEUTROPHILS ABSOLUTE AUTO 15.11 K/mm3 (1.96-9.15); NEUTROPHILS PERCENT AUTO 93 % (41-73); Platelet Count 219 K/mm3 (150-400); RDW Coefficient Variation 16.8 % (11.7-14.2); Red Blood Cell Count 2.56 M/mm3 (3.80-5.20); White Blood Cell Count 16.31 K/mm3 (4.00-11.30)
[2023-03-14 05:27] LABS: Albumin, Blood 3.2 g/dL (3.4-5.0); Anion Gap 3 mmol/L (6-16); Blood Urea Nitrogen 45 mg/dL (8-24); Bun/Creatinine Ratio 38.8 (12.0-20.0); CO2, Blood 33 mmol/L (21-32); Calcium, Blood 9.2 mg/dL (8.5-10.1); Chloride, Blood 109 mmol/L (98-108); Creatinine, Blood 1.16 mg/dL (0.40-1.00); Glomerular Filtration Rate 49 (60-); Glucose, Blood 139 mg/dL (70-99); Phosphorus, Blood 3.7 mg/dL (2.5-4.9); Potassium, Blood 4.3 mmol/L (3.5-5.5); Sodium, Blood 145 mmol/L (136-145)
--- NOTE | 2023-03-14 07:40 | NUR ---
SHIFT SUMMARY: PT A&OX4 BUT FORGETFUL. WHEN ASKED PT IF THIS WAS NORMAL FOR HER SHE STATES "I'M ALLWAYS FORGETTING THINGS". O2 SATS > 92% ON 2-3 LPM VIA NC. BP SOFT, LOWEST MAP 63, DR. KNOWLES INFORMED. PT ASYMPTOMATIC. NO NEW ORDERS GIVEN. HR SR. SLEEP AID GIVEN WITH GOOD AFFECT. PT FOUND SOON AFTER MIDNIGHT ROUNDS SITTING ON FLOOR IN BATHROOM. NO WOUNDS OR NEW BRUISING NOTED. PT RETURNED TO BED. ABLE TO STAND WITH TWO ASSIST. GAIT WEAK. VITAL SIGNS STABLE. UNABLE TO OBTAIN CLEAR UNDERSTANDING OF HOW PT ENDED UP ON FLOOR IN BATHROOM, STATES "I DON'T WANT TO TALK ABOUT IT". BED ALARM PLACED ON BED FOR SAFETY. CAMERA TO MONITOR PT PLACED IN ROOM. CALL LIGHT IN REACH. BED IN LOW POSITION.
--- NOTE | 2023-03-14 11:59 | NUR ---
CALLED DR. SOW ABOUT SOFT BP'S PT STILL HAVING BLACK TARRY BM'S, BP TRENDING DOWN, NPO, GI CONSULTED. IS ORDERING NS @ 75ML/HR FOR A CONT INF.
--- NOTE | 2023-03-14 13:44 | NUR ---
VIRTUAL BUS WASHER NOTED TO BE NOT WORKING ABOUT 1130. STAFF PLACED WITH THE PT UNTIL IT WAS RESOVLED. THE VIRTUAL BUS WASHER WAS ON AND CONFIRMED AT ABOUT 1230.
--- NOTE | 2023-03-14 14:05 | NUR ---
Patient is lying in bed and alert. She immediately tells me about the struggles with her health, getting sleep, her caregiver and her d/c plan. She talks about her mental/emotional struggles and the small things in life that she enjoys (top of the list is her two dogs Salvador and Riddle, and watching TV). I encourage reconciliation if she feels safe in opening up the conversation, if not, then ways to live at greater peace while in conflict with someone. We also talk about her medical needs going forward and possible ways of looking at the bigger picture. I encourage self-care, normalize her fears and feelings, and I provide therapeutic listening and prayer. Patient responded well to all interventions and displayed evidence of greater peace.
--- NOTE | 2023-03-14 17:07 | NUR ---
SHIFT SUMMARY PT IS A&OX4, AND HAS BEEN APPROPRAITE TODAY WITH USING HER CALL LIGHT. WE HAVE THE BED ALARM ON AND VIRTUAL GAS APPLIANCE INSTALLER ON. [place] [facility] [place] IS HAVING LOOSE BLACK TARRY STOOLS AND FREQUENT NEEDS TO VOID. ON TELE THE PT HAS BEEN SR/ST 90'S-100'S W/O ANY COMPLAINTS OF SOB. SHE HAS BEEN ON 2L NC THE ENTIRE DAY AND DENIES ANY SOB. PT WAS MADE NPO AT THE START OF THE SHIFT FOR A GI CONSULT. WE ARE AWAITING DR. MARCUM TO COME EVALUATE THE PT. THE PT DOES NOT WANT HER CAREGIVERS TO VISIT DUE TO POOR INTERACTIONS. THE PT HAS BEEN EMOTINAL TODAY AND ENJOYED SPEAKING TO PALLIATIVE CARE AND SPIRITUAL CARE. VIRTUAL GAS APPLIANCE INSTALLER ON, BED ALARM ON, BED IN LOW, AND DOOR OPEN TO THE PT ROOM. FIRE IGNITION RISK WAS EVALUATED. NOT A RISK AT THIS TIME. PT IS REFUSING NICOTINE PATCH DUE TO POSSIBLE NIGHTMARES.
--- NOTE | 2023-03-14 17:26 | NUR ---
Discussion wtih pt of her care needs. She is expressing great stress at the lack of care from her friend and caregiver. She is now thinking she needs to see GI and consider interventions. We discussed changes in life and getting more help. She realizes she needs to make some changes. Discussed her stress and beliefs she loves her dogs and home and thinks she can stay longer. She states she is not a memeber of a taoism. She does believe in god and prayed. Advised we do not marine consultant or push religon. Advised that [facility] is a good support systerm. Sent chapmarshal Ragland and they had a good visit. Will contiue to follow and discuss advance care planning after GI sees her.
--- NOTE | 2023-03-14 18:14 | NUR ---
TRANSFER TO ROOM 346. PT ORIENTED TO ROOM. CALL LIGHT IN REACH. BED ALARM SET. 2 RN SKIN CHECK COMPLETED WITH PRASANNA AMARO RN. NO CHANGES FROM PREVIOUS SKIN ASSESSMENT. CALL TO DR. TRIXIE ANAYA, HE WILL BE IN TO SEE THE PATIENT TONIGHT. ORDER TAKEN TO MAKE THE PATIENT FULL LIQUID AT THIS TIME.
[2023-03-15 04:25] VITALS: BP 147/72
--- NOTE | 2023-03-15 05:45 | NUR ---
SHIFT SUMMARY PT SITTING UP IN BED DURING BEDSIDE REPORT FROM CELENA RN- IV INFUSING WITHOUT PROBLEMS, PT TOOK SCHEDULED HS MEDS WITHOUT PROBLEMS, SCDS APPLIED TO BILAT LEGS- GAVE MELATONIN - PT ASLEEP FOR A SMALL AMOUNT OF TIME AND THEN REQUESTED AMBIEN- PT SLEPT T/O NIGHT, BED ALARM IN PLACE, PT UP THIS AM TO BSC- PT SOB WITH EXERTION- BED LOW POSITION, CALL LIGHT WITHIN REACH
[2023-03-15 06:21] LABS: BASOPHILS ABSOLUTE AUTO 0.01 K/mm3 (0.00-0.23); BASOPHILS PERCENT AUTO 0 % (0-2); EOSINOPHILS PERCENT AUTO 0 % (0-6); Hematocrit 25.1 % (33.0-51.0); Hemoglobin 7.9 g/dL (11.5-16.0); IMMATURE GRAN ABSOLUTE AUTO 0.17 K/mm3 (0.00-0.10); IMMATURE GRAN PERCENT AUTO 1 % (0-1); LYMPHOCYTES ABSOLUTE AUTO 0.56 K/mm3 (0.84-5.20); LYMPHOCYTES PERCENT AUTO 5 % (21-46); MONOCYTES ABSOLUTE AUTO 0.53 K/mm3 (0.16-1.47); MONOCYTES PERCENT AUTO 4 % (4-13); Mean Corpuscular HGB 30.9 pg (26.0-34.0); Mean Corpuscular HGB Conc 31.5 g/dL (31.5-36.5); Mean Corpuscular Volume 98 fL (80-100); Mean Platelet Volume 10.3 fL (9.1-12.4); NEUTROPHILS ABSOLUTE AUTO 11.02 K/mm3 (1.96-9.15); NEUTROPHILS PERCENT AUTO 90 % (41-73); Platelet Count 224 K/mm3 (150-400); RDW Coefficient Variation 16.3 % (11.7-14.2); RDW Standard Deviation 58.3 fL (35.1-46.3); Red Blood Cell Count 2.56 M/mm3 (3.80-5.20); White Blood Cell Count 12.29 K/mm3 (4.00-11.30)
[2023-03-15 06:46] LABS: Bun/Creatinine Ratio 36.9 (12.0-20.0); Creatinine, Blood 1.11 mg/dL (0.40-1.00); Potassium, Blood 4.4 mmol/L (3.5-5.5)
[2023-03-15 07:46] VITALS: BP 114/63
--- NOTE | 2023-03-15 13:48 | NUR ---
Spiritual care visit conducted. Patient immediately states her desire to pursue with Dignity. I explain the process and also that it is not a service we offer at the hospital. I also approach code status and health care goals. Patient explains that she would prefer to have her status changed to DNR/DNI and intiate comfort care and hospice plans . Palliative care RN Mariah, enters patient's rm while we are talking and patient voices these desires to her, as well. We then explore sources of meaning, human dignity and purpose. We discuss the patient's ideas of ways she could give to others in small ways before her demise. Patient expresses a desire to redo her will and reflects on some painful experiences that she has had with her rn critical care. I make suggestions on paths to carry out her desires regarding her will. I provide therapeutic listening, gentle recreation counselor, prayer and a calming presence. Patient responded well and showed signs of improved hope and reduced stress.
--- NOTE | 2023-03-15 18:09 | NUR ---
SHIFT SUMMARY PT A&O X4. PT REQUESTED TO BE PLACED ON COMFORT CARE STATING SHE JUST WANTED TO GO HOME. PT REFUSED OCCUPATIONAL THERAPY. VSS. NO ACUTE EVENTS DURING MY SHIFT. PT LEFT IN A POSITION OF SAFETY WITH BED LOCKED AND IN LOWEST POSITION, NONSKID SOCKS IN PLACE, BED RAILS UP X2, ROOM CLEAR OF DEBRIS, AND CALL LIGHT WITHIN REACH.
--- NOTE | 2023-03-15 19:18 | NUR ---
Met with patient and chaplian. Therputic care with elizabeth . She relayed to chaplian and nurse she does not want any care and wants with dignity and comfort. We discussed that we cannot participate in with dignity here. Relayed the lengthy process. We then discussed getting hospice on board for comfort and allowing a comfortable and respectful passing. She was open to that process. Theraputic touch and talk to hoefully make her feel heard and respected. Comfort care orderes obtained. Started out with lower dose roxinol due to her frailty and low weight will evaluated her tolerance. pt did not have a preferance for hospice team. Asked dr muñiz to review case to see if she qualified for hospice. She does and we will start referal. comfort quilt placed. She does not have a decision maker that she can designate if she cannot speak. Estefani Ragland and myself offered surrogacy. We ill get and ethic consult if decisisons need to be made for medical care. She made her beliefs and needs clearly known for dignity and comfort.
[2023-03-15 19:42] VITALS: BP 115/64
--- NOTE | 2023-03-16 05:31 | NUR ---
SHIFT SUMMARY PT SITTING UP IN BED DURING BEDSIDE REPORT- PT ON 3L VIA NC- PT HAS EPISODES OF DYSPNEA WITH TALKING- REPORT THAT SCARLET PALLIATIVE RN DISCUSSED WITH PT ATIVAN AND ROXANOL WILL BOTH HELP WITH THE DYSPNEA AND INSOMNIA, PT REQUESTED AT HS- APPLIED PUREWICK- PT TOLERATED WELL- PT ABLE TO TURN SELF IN BED - MEPILEX ON SACRUM AND RIGHT HIP BOTH C/D & I - PT REQUESTED 2 ENSURES IN NIGHT AND TOLERATED WELL, PT REPOSITIONED IN THE NIGHT, BED LOW POSITION, CALL LIGHT WITHIN REACH, BED ALARM IN PLACE
--- NOTE | 2023-03-16 14:57 | NUR ---
Spiritual care visit conducted. Patient is sitting up in bed and alert with no lights on in the rm. She talks at length about the anxiety and weight she feels in the endless struggle to breath. She states that sleep in the only time she feels at rest in her skin. We discuss mindfulness practices, and paths to finding greater peace. I also provide therapeutic type guitar music and singing. Patient showed signs of being deeply moved by this intervention and as well and displaying evidence of increased peace through prayer and calm reflective conversation. Patient voices much appreciation for the spiritual care visit
--- NOTE | 2023-03-16 17:36 | NUR ---
SHIFT SUMMARY NO ACUTE CHANGES THIS SHIFT. CALL LIGHT WITHIN REACH AND PT ABLE TO MAKE NEEDS KNOWN.
--- NOTE | 2023-03-17 04:06 | NUR ---
SHIFT SUMMARY PT A/OX4 ABLE TO MAKE NEEDS KNOWN. SLEPT MAJORITY OF THE NIGHT. PRN MELATONIN AND TYLENOL GIVEN X1 EACH. PUREWICK IN PLACE. NO BM, CAN NOT RECALL LAST BM.
--- NOTE | 2023-03-17 13:36 | NUR ---
Spiritual are visit conducted. Patient continues to ask about with dignity, I bring her the phone number and [facility] FAQ sheet. She struggles to find or want to find meaning for the days that she has to live. She tells me that she sees God waiting for her with an outstretched hand. She is mentally clear and set on her direction and goals. She is uplifted by a calming presence and conersation centered around God. She tells me that she called her sister whom she had not spoken with in over a decade and that their was some healing there in the relationship but she states that she will probably not talk to her again. She did not tell her sister about her poor prognosis. I provide therapeutic listening, gentle vocational guidance counselor and prayer. Patient responded well and showed signs of an elevated mood.
--- NOTE | 2023-03-17 19:17 | NUR ---
SHIFT SUMMARY: PT A/O X 4, BEDREST. PLEASANT AND COOPERATIVE WITH CARE. PT ON COMFORT MEASURES. PT SYMPTOMS MANAGED WITH LORAZEPAM AND ROXANOL ORDERED. PT TEARFUL AT TIMES WHEN DISCUSSING HER SITUATION. LISTENED EMPATHETICALLY AND PROVIDED ENCOURAGEMENT. PT SPOKE TO SISTER JENNA ON THE PHONE. PT ADVANCED DIET TO MECH SOFT AND TOLERATED WELL.
--- NOTE | 2023-03-18 04:43 | NUR ---
SHIFT SUMMARY PT DID WELL WAS A LITTLE ANXIOUS IN THE EVENING AND REQUESTED MEDS FOR ANXIETY AND SLEEP. PT WAS A LITTLE ANXIOUS AND SOB SO WAS MEDICATED. PT SLEPT VERY WELL THROUGHT THE NIGHT WITH NO COMPLAINTS, PURWIK IN PLACE, COMFORT CARE MEASURES IN PLACE.
--- NOTE | 2023-03-18 17:28 | NUR ---
APPLIED KNEE HIGH COMPRESSION SOCKS TO BILAT LEGS UNDER BILAT SCD'S.
--- NOTE | 2023-03-18 17:58 | NUR ---
SHIFT SUMMARY A&O X 4. IS COMFORT CARE. HAS RESTED QUIETLY THIS SHIFT. MEDICATED ONCE FOR ANXIETY & ANXIETY INDUCED SOB WITH GOOD EFFECT. PT HAS DENIED THE NEED FOR MORE MEDS THIS SHIFT. REPOSITIONED FOR COMFORT. PUREWICK IN PLACE FUNCTIONING WELL. BILAT LE'S WITH COMPRESSION SOCKS & SCD'S. IV ACCESS IN R UPPER ARM. APPETITE IS GOOD.
--- NOTE | 2023-03-19 03:09 | NUR ---
PT MORE DROWSEY TODAY COOPERATIVE AND CAN MAKE NEEDS KNOWN. PT ON COMFORT MESURES AND DOESNT WANT TO BE BOTHERED, JUST WANTS TO SLEEP THROUGHOUT THE NIGHT. TOLD HER IF SHE WAKES UP I WILL TURN HER AND SHE AGRESSED. PURWIC IN PLACE DRAINING WELL. WILL CONT TO MONITOR PT IN A DEEP SLEEP RESPERATIONS ARE WNL.
--- NOTE | 2023-03-19 09:57 | NUR ---
Comfort Care Visit Pt resting in bed with her eyes closed. Pt appears comfortable with no S/S of distress at this time. Pt left undisturbed at this time. Spoke with Primary RN Jeannie and discussed case. Palliative Care will remain available
--- NOTE | 2023-03-19 16:34 | NUR ---
PT STATES THAT A PERSON NAMED JENNA FABIAN (FORMER CAREGIVER) IS NOT TO HAVE ANY INFORMATION REGARDING HER CARE OR UPDATES REGARDING HER STATUS, TO COME SEE HER OR TO OFFER ANY INFORMATION REGARDING PT'S HEALTH CARE.
--- NOTE | 2023-03-19 19:32 | NUR ---
SHIFT REPORT A&O X 4. COMFORT CARE. MEDICATED PER EMAR WITH GOOD EFFECT STATED BY PT. HAS RESTED QUIETLY THROUGHOUT SHIFT WITH EYES CLOSED, RESP EVEN & UNLABORED. PUREWICK IN PLACE FUNCTIONING WELL. POWER GLIDE DC'D WITH CATH TIP INTACT, NO REDNESS OR SWELLING NOTED. PLAN IS PLACEMENT ON HOSPICE, AWAITING AUTH FOR SNF.
--- NOTE | 2023-03-20 10:05 | NUR ---
Comfort Care Visit Pt resting in bed with her eyes closed. Pt wakes to gentle verbal stimuli. When asked how she is feeling, Pt states "Tired". Pt denies pain, anxiety, and dyspnea. Ended visit to allow Pt to rest. Pt appears comfortable with no S/S of distress at this time. Spoke with Pt's Primary RN Maya. No concerns reported at this time. Palliative Care will remain available
--- NOTE | 2023-03-20 17:11 | NUR ---
SHIFT SUMMARY PT AxOx4. PLEASANT AND COOPERATIVE WITH CARE. PT IS ON COMFORT CARE. PT IS ABLE TO MAKE NEEDS KNOWN AND CALLS APPROPRIATELY. COMFORT CARE ASSESSMENTS UP TO DATE. PT HAD VISITORS TODAY. PT DENIED PAIN/ANXIETY TODAY. PT HAD BED BATH TODAY. PT IS CURRENTLY RESTING IN BED WITH CALL LIGHT IN REACH. DENIES ANY NEEDS AT THIS TIME.
--- NOTE | 2023-03-21 04:45 | NUR ---
SUMMARY: PT REMAINS ON COMFORT CARE. SHE'S A/OX4, IS PLEASANT AND COOPERATIVE W/CARE AND CALLS APPROPRIATELY TO SPECIFY NEEDS. SHE'S ON BEDREST W/TURN SCHEDULE MAINTAINED AND PUREWIC CATH IN PLACE. PT ON 3L O2 W/TIGHT LS AND BECOMES SOB W/EXERTION AT TIMES BUT RECOVERS AT REST. SHE C/O OF DIFFICULTY SLEEPING DESPITE RECIEVING PRN MELATONIN AND PO ATIVAN SO MD NOTIFIED AND X1 RESTORIL WAS RX'D. WHEN STAFF ATTEMPTED TO ADMIN MED SHE WAS ASLEEP AND HAS BEEN RESTING COMFORTABLY W/O S/S DISTRESS SINCE. NO ACUTE CHANGES. WCTM AND REPORT TO DAY RN.
--- NOTE | 2023-03-21 07:30 | NUR ---
ASSUMED CARE: PT RESTING QUIETLY AT THIS TIME. NO ACUTE DISTRESS OR CONCERNS NOTED.
[2023-03-21 07:33] VITALS: BP 131/66
--- NOTE | 2023-03-21 15:25 | NUR ---
Spiritual care visit conducted. Evelyne is lying in bed and resting. She easily awakens to the sound of her name. She tells me about her her visits form her friends who brought the box that hs her husbands ashes and a picture of him. We talk about his life, his personality and about how it brings her comfort to have the ashes near her. The patient shares that she asked her friends to find new home for her dogs and that she gave her big screen TV to another firend as she prepares for her . She explains about her curiosity about her placement. I ask a acute care assistant about the patient's case and so I relay the information about how everything is on hold as we wait for people to respond. Patient is fine with this as she has been very grateful for her stay in the hospital. I provide therapeutic listening and prayer. Patient responds well and showed signs of an elevated mood.
--- NOTE | 2023-03-21 18:27 | NUR ---
SHIFT SUMMARY: PT IS COMFORT CARE, AWAITING DC TO SNF. MEDICATED X1 FOR ANXIETY AND HAS BEEN RECIEVING BREATHING TX FROM RT. DENIES NEEDS OR CONCERNS. ALERT AND ORIENTED AND MAKING NEEDS KNOWN
--- NOTE | 2023-03-22 06:50 | NUR ---
Shift Summary Pt on comfort care. Very irritable at the start of the shift, requested melatonin and ativan to help her sleep. Once medicated pt slept well t/o the night. Incontinent voids managed with purewick. Incontinent BM, attends changed as needed. No c/o pain, SoB, or nausea. Pt AOx4.
--- NOTE | 2023-03-22 16:24 | NUR ---
Spiritual care visit conducted. Short visit today because I was called out of the patient's room to an emergency, but we did discuss the new friend that she has and how she wants this person named Latoya at her bedside when she dies. We also discuss her concerns that she thought that a staff member told her that she may be lodged in the hospital for up to 6 more weeks. I assure her that the care management team will do everything possible to move her towards a safe d/c as quickly as possible. I provide prayer and guidance. I will continue to remain available to patient and family.
--- NOTE | 2023-03-22 18:09 | NUR ---
SHIFT SUMMARY PT ASKING FOR ASSISTED SUICIDE TODAY. PT EDUCATED THAT WE ARE STILL WORKING ON HOSPICE PLACEMENT BEFORE ANYTHING LIKE THAT CAN OCCUR. PT STATES SHE DOES NOT WANT TO HARM HERSELF, JUST IS TIRED AND READY FOR THE END. PT MEDICATED WITH ATIVAN AND ROXANOL TOGETHER TO HELP WITH AIR HUNGER AND ANXIETY. THIS HELPED THE PATIENT RELAX AND TAKE A NAP. PT STATES SHE IS THANKFUL AND APPRICIATED THE REST. PT REFUSED REPOSITIONING T/O THE DAY. EVEN AFTER EDUCATION ABOUT THE BENEFITS OF REPOSITIONING. PT EATING WELL. REQUETING ORIGINAL CHOCOLATE ENSURE, BUT THE KITCHEN IS OUT FOR NOW. PT UPDATED ON THIS. NO OTHER ACUTE CHANGES IN ASSESSMENT AT THIS TIME. CALL LIGHT IN REACH. DENIES OTHER NEEDS AT THIS TIME.
--- NOTE | 2023-03-22 18:33 | NUR ---
PERSONS TO CONTACT PT GAVE PERMISSION FOR STAFF TO RELEASE INFORMATION TO HER SISTER, JENNA SAHA AND HER FRIEND, ROSALIND FELIZ. CHART UPDATED TO REFLECT THIS.
--- NOTE | 2023-03-22 23:35 | NUR ---
CALL PLACED TO [facility]. PT REQUESTING SLEEPING MEDICATION, AND STATES THAT MELATONIN ISNT WORKING. HOSPITALIST LETHA ORDERED A ONE TIME DOSE OF TEMAZEPAM 15mg. ORDER ENTERED.
--- NOTE | 2023-03-23 13:32 | NUR ---
Spiritual care visit conducted. Patient is lying in bed and alert. She tells me that she is breathing better today and enjoys restingbecause it makes the day go by quickly. We discuss the possibility of recovering well enough to maintain a higher quality of life and if so could that give some space for her to find purpose and meaning (at least for the time between now and her demise)? Patient still maintains that her greatest desire is to leave this planet and be reunited with her who has . We talk about the things in the day that brighten things up. She talks again about this new friend Latoya who is taking great interest in the patient. My hope is that Latoya has pure intentions and is a good actor on the patient's behalf as the patient seems to be giving more authority to her. I encourage self-care, normalize her experience and provide therapeutic listening, gentle counselor at law and prayer. Patient responded well and showed signs of deeper reflection upon the days and breaths that she has been given. I will continue to remain available to patient and family.
--- NOTE | 2023-03-23 16:45 | NUR ---
Comfort Care Visit Spoke with Primary RN Bibiana and discussed case. Pt started on bowel regimen and ativan for anxiety. Pt resting in bed and denies pain, dyspnea, and anxiety at this time. Pt reports no concerns at this time. Offered supportive visit. Pt expresses appreciation. Palliative Care will remain available
--- NOTE | 2023-03-23 16:52 | NUR ---
SHIFT SUMMARY: ON COMFORT CARE. DENIED PAIN, BUT C/O CONSTIPATION. NEW ORDER RECEIVED FOR MIRALAX AND PT HAD LARGE BM AFTER ADMINISTRATION, FEELS BETTER. ON O2 @ 3 L/MIN NC. TOLERATING FULL LIQ DIET, NO NAUSEA. PUREWICK IN PLACE FOR URINE MANAGEMENT.
--- NOTE | 2023-03-24 04:06 | NUR ---
SHIFT SUMMARY NOC PT ON COMFORT CARE. A/O X 4. PLEASANT AND COOPERATIVE WITH CARE. PT HAD C/O OF INSOMNIA AGAIN. ORDER FOR RESTORIL OBTAINED FOR BEDTIME SCHEDULED RX. PT HAS PUREWICK IN PLACE. NO IV ACCESS ORDER. ON O2 3L/NC. PT APPETITE IS ADEQUETE PT REQUESTING CHOCOLATE ENSURE IN THE SQUARE BOX. PT IS AWAITING LTC MEDICAID APPLICATION PROCESSING TO SEE IF THEY QUALIFY FOR LTC HOSPICE PLACEMENT/PAYMENT. PT IS CURRENTLY RESTING WITH BED IN LOWEST POSITION, AND CALL LIGHT WITHIN REACH.
--- NOTE | 2023-03-24 14:36 | NUR ---
Comfort Care Visit Pt resting in bed upon arrival. Pt denies pain at this time. Offered supportive visit. Pt reports being in agreement for placement with hospice services. Pt reports no concerns at this time. Palliative Care will remain available
--- NOTE | 2023-03-24 16:29 | NUR ---
Short spiritual care visit today. We discuss her lu, her possible d/c soon and her new friend Latoya whom she states she has known for a month. I listen empathically and provide prayer. Patient responded well and showed signs of an elevated mood.
--- NOTE | 2023-03-24 18:10 | NUR ---
SHIFT SUMMARY: ON COMFORT CARE. DENIED PAIN. ON O2 @ 3 L/MIN NC. HAVING INTERMITTENT ANXIETY, MEDICATED WITH ATIVAN WITH RELIEF. HAD LARGE BM TODAY. PUREWICK MANAGING URINE. APPETITE GOOD.
--- NOTE | 2023-03-25 02:04 | NUR ---
SHIFT SUMMARY NOC PT ON COMFORT CARE. A/O X 4. PLEASANT AND COOPERATIVE WITH CARE. PT REPORTS EAGERNESS TO HAVE HOSPICE FACILITY ASSESSMENT MEETING TODAY. PT ON O2 3L/NC. PUREWICK IN PLACE MANAGING URINE. PT RECEIVED NIGHT TIME SLEEP AID RX FOR INSOMNIA WITH INTENDED EFFECT. PT AWAITING HOSPICE PLACEMENT PENDING MEDICAID/ASSESSMENT. PT IS CURRENTLY RESTING WITH BED IN LOWEST POSITION, AND CALL LIGHT WITHIN REACH.
--- NOTE | 2023-03-25 17:54 | NUR ---
SHIFT SUMMARY PT AOX4, BEDREST. CALL WELL AND MAKES HER NEEDS KNOWN. MEDICATED PER THE EMAR FOR ANXIETY ONCE THIS SHIFT. NO COMPLAINTS OF PAIN. NEIGHBORS AND CHILDREN VISITED AT THE BS TODAY. JENNA AND HEATHER ARE NOT ALLOWED IN HER ROOM. STACEY CHANGED THIS SHIFT, ROWDY MILIAN CHANGED THIS SHIFT. FULL BED CHANGE THIS SHIFT. CALL LIGHT WITHIN REACH, BED IN THE LOWEST POSITION. WILL REPORT TO ONCOMING NURSE.
--- NOTE | 2023-03-26 04:50 | NUR ---
SHIFT SUMMARY PT A&O X4, COMFORT CARE AND BEDREST. PUREWICK IN PLACE. PT REQUESTING ENSURES TO DRINK. SLEPT MUCH OF THE NIGHT. REQUESTED MEDICATION FOR ANXIETY AND TO SLEEP. KNOWS HOW TO CALL AND IS ABLE TO MAKE NEEDS KNOWN. MEPILEX IN PLACE ON COCCYX. CURRENTLY ON 3L O2 VIA NC. BED KEPT IN LOWEST POSITION WITH CALL LIGHT IN REACH.
--- NOTE | 2023-03-26 16:00 | NUR ---
Pt resting. noted more roxinol today. Will monitor affect and needs.
--- NOTE | 2023-03-26 16:09 | NUR ---
SHIFT SUMMARY NO VISITORS THIS SHIFT OF NOTE. SYMPTOMS BEING MANAGED WELL WITH MEDS. PATIENT DECLINED POSITIONING AND CHANGING AT TIMES THIS SHIFT, ACCEPTED CARES AT LATER TIMES. WILL CONTINUE TO MONITOR
--- NOTE | 2023-03-27 16:37 | NUR ---
SHIFT SUMMARY PATIENT RESTING MOST OF SHIFT. NO REQUESTS FOR PAIN MEDS/ANXIETY MEDS. ACCEPTED POSITIONING. WILL CONITNUE TO MONITOR
--- NOTE | 2023-03-27 17:25 | NUR ---
Pt sleeping nurse reports comfort. Vistor restriction in place for protection. Will continue to monitor.
--- NOTE | 2023-03-28 05:07 | NUR ---
SHIFT SUMMARY PT IS A&O4, BEDREST DUE TO WEAKNESS, 3L NC, COMFORT MEASURES IN PLACE, PURIWICK AND ATTENDS IN PLACE, NO ACUTE OVERNIGHT EVENTS CONTINUE POC
--- NOTE | 2023-03-28 17:59 | NUR ---
SUMMARY- AAOX4. PAIN AND ANXIETY WEL CONTROLLED THIS SHIFT WITH EMAR MEDS. ROXANOL AND ATIVAN GIVEN ONCE EACH THIS SHIFT. PT POLITELY REFUSED TURNS MULTIPLE TIMES THIS SHIFT. PT EDUCATED ON MAINTAINING SKIN INTEGRITY.
--- NOTE | 2023-03-29 03:55 | NUR ---
shift summary. shift has been mostly unremarkable. pt aox4, pleasant, cooperative with care. complained of very mild pain early in shift which has been managed via prn roxanol. no complaints since and pt has been sleeping through entirety of shift since medication administration. comfort care. satting well on 3 l o2 via nc. calls appropriately. bedrest thus far. minimal po intake. bed locked in lowest position. call light left within reach.
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
--- NOTE | 2023-03-29 15:41 | NUR ---
Comfort Care Visit Pt resting in bed upon arrival. Pt denies pain at this time. Offered supportive visit. Pt inquires about time frame of D/C with hospice services. Instructed on plan with Pt expressing appreciation. No other concerns reported at this time. Spoke with Primary RN Zoey and discussed case. Palliative Care will remain available
--- NOTE | 2023-03-29 17:42 | NUR ---
SHIFT SUMMARY: PT IS A PLEASANT 77 YEAR OLD FEMALE HERE ON COMFORT CARE. SHE HAS BEEN IN BED RESTING, USES HER CALL LIGHT APPROPRIATELY, AND HASN'T BEEN PAINFUL, ANXIOUS. BEEN TREATING WITH COMFORT MEDS NEEDED. SHE REMAINS A&O X4 AND STATES THAT SHE IS "READY TO BE DONE" PALLATIVE CARE CAME AND VISITED PATIENT TODAY. PLAN OF CARE ONGOING.
--- NOTE | 2023-03-30 05:22 | NUR ---
SHIFT SUMMARY 77 YR F ON COMFORT CARE. NO ACUTE CHANGES THIS SHIFT. PT IS VERY PLEASANT AND COOPERATIVE. SHE WAS MEDICATED ONCE FOR PAIN EARLY IN THE SHIFT AND SHE HAS SLEPT FOR MOST OF THE REST OF THE SHIFT.
--- NOTE | 2023-03-30 10:17 | NUR ---
Comfort Care Visit Spoke with Primary RNs Scar and Zoey. Pt made statement last night "I'm waiting for someone to show for assisted suicide". No symptoms of concern reported. Brief supportive visit with Pt. Pt denies discomfort at this time. Addressed Pt's understanding of hospice. Discussed the difference betwenn "the right to " and hospice. Pt reports understanding and remains in agreement with plan for placement with hospice services. Palliative Care will remain available
--- NOTE | 2023-03-30 18:59 | NUR ---
SHIFT SUMMARY: PT IS A 77 YEAR OLD FEMALE HERE ON COMFORT CARE. SHE IS PLEASANT AND COOPERATIVE WITH STAFF. SHE IS A&O X4, CALLS APPROPRIATELY, AND STAYS IN BED. REPOSITIONING, MEDICATE NEEDED, AND KEEPING COMFORTABLE. PLAN OF CARE ONGOING.
--- NOTE | 2023-03-31 04:28 | NUR ---
SHIFT SUMMARY; COMFORT CARE PT- NO ACUTE CHANGES OVERNIGHT. THE PT IS AXO X4 AND BEDREST. THE PT HAS BEEN SLEEPING THE ENTIRETY OF THE SHIFT. THE PT IS ON 3L NC FOR COMFORT. Q2 RESPOSITIONING OFFERED. THE PT DID NOT WANT HER HIPS FLOATED BUT AGREED TO ALLOW ARMS AND LEGS TO BE FLOATED. EDUCATED PT ON IMPORTANCE OF ALLOWING US TO FLOAT HER HIPS TO HELP PREVENT FURTHER SKIN BREAKDOWN. PT STATES AGGREANCE TO THIS, BUT STILL DOES NOT ALLOW HIP FLOATING. PT DENIES ANY SOB, CHEST PAIN/PRESSURE, PAIN AND OR N/V. CURRENTLY THE PT IS SLEEPING IN BED WITH THE BED IN THE LOWEST POSITION AND THE CALL LIGHT AT BEDSIDE. FIRE SAFETY ROUNDS COMPLETED.
--- NOTE | 2023-03-31 13:48 | NUR ---
Pt resting in bed with her eyes closed. Pt appears comfortable with no S/S of distress at this time. Pt left undisturbed at this time. Spoke with Primary RN Iram and discussed case. Palliative Care will remain available
--- NOTE | 2023-03-31 18:17 | NUR ---
SHIFT SUMMARY: VICKI IS A&OX4. SHE IS TOLERATING PO INTAKE WELL, HAS DENIED PAIN THROUGHOUT THE SHIFT, AND IS ABLE TO MAKE HER NEEDS KNOWN. SHE DID HAVE A BM THIS SHIFT, PUREWICK IN PLACE, ATTENDS IN PLACE. SHE HAS BEEN TURNED AND REPOSITIONED PRN. SHE IS LYING IN BED WITH THE CALL LIGHT IN REACH. WCTM UNTIL REPORT IS GIVEN TO GYM INSTRUCTOR RN.
--- NOTE | 2023-04-01 06:30 | NUR ---
SHIFT SUMMARY; NO ACUTE CHANGES OVERNIGHT. THE PT IS AXO X4 AND BEDREST. THE PT IS COMFORT CARE STATUS. THE PT HAS BEEN SLEEPING THE MAJORITY OF THE NIGHT. THE PT HAS REFUSED Q2 REPOSITIONING T/O THE NIGHT. THE PT CAN MOVE IN BED INDEPENDENTLY SOMEWHAT. PT EDUCATED ON IMPORTANCE OF ALLOWING Q2 REPOSITIONING TO PREVENT FURTHER BREAKDOWN OF SKIN AND DEVELOPMENT OF BED ULCERS. PT STATES UNDERSTANDING BUT CONTINUES TO REFUSE Q2 REPOSITIONING. THE PT HAS DENIED THE NEED FOR ANY PAIN MEDICATION THIS PM. THE PT HAS 4L NC IN PLACE, THE PT DENIES ANY SOB. CURRENTLY THE PT IS SLEEPING IN BED WITH THE BED IN THE LOWEST POSITION AND THE CALL LIGHT AT BEDSIDE. FIRE SAFETY CHECKS COMPLETED T/O THE NIGHT.
--- NOTE | 2023-04-01 18:16 | NUR ---
SHIFT SUMMARY: VICKI IS A&OX4. SHE IS ABLE TO MAKE HER NEEDS KNOWN, PUREWICK IN PLACE, TOLERATING PO INTAKE WELL. SHE IS INCONTINENT OF BOWEL, BM X [address] ENCOURAGED PT TO TURN AND REPOSITION, EDUCATED ON PRESSURE ULCER PREVENTION, PROPPED WITH MULTIPLE PILLOWS. PT REQUESTED MEDICATION FOR ANXIETY ONCE THIS AFTERNOON, DENIES SOB ON 4L VIA NC. SHE IS LYING IN BED WITH THE CALL LIGHT IN REACH. WCTM UNTIL REPORT IS GIVEN TO QUALITY MANAGEMENT NURSE RN.
--- NOTE | 2023-04-02 04:54 | NUR ---
END OF SHIFT SUMMARY PT A&O x4, WITH STML. PT CALLED FREQUENTLY OVERNIGHT AT BEGINNING OF SHIFT. PT REQUESTED PRN SLEEP MEDICATION, ATIVAN, MELATONIN, RESTORIL AND APAP. PT SLEPT WELL ONCE SHE GOT COMFORTABLE. NEW PINK MEPILEX DRESSING PLACED TO COCCYX FOR PREVENTION OF SKIN BREAKDOWN. PT DENIED PAIN/DISCOMFORT, ANXIETY DEFINITELY NOTED. ACTIVE LISTENING AND THERAPEUTIC COMMUNICATION PROVIDED. PT ABLE TO MAKE NEEDS KNOWN, CALL LIGHT WITHIN REACH, WCTM.
--- NOTE | 2023-04-02 17:35 | NUR ---
SHIFT SUMMARY MS FRANKLIN HAS BEEN ORIENTATED X4 TODAY, VERY PLEASANT AND COOPERATIVE WITH HER CARE. ON OXYGEN 4L NC. INCONTINENT OF BOWEL AND BLADDER. LOW UOP WITH PUREWICK/SOME LEAKAGE. MOST OF THE DAY SHE HAD NO PAIN AT ALL, C/O 5/10 HEADACHE AND BACK DISCOMFORT IN THE LATER PART OF THE SHIFT HELPED BY ROXINOL 5MG. SHE SAID AFTER ATIVAN 0.5MG PO SHE IS FEELING COMPLETELY RELAXED AND COMFORTABLE. SHE HAS BEEN ENGAGED IN CONVERSATION AND APPRECIATED COMPANY AND CARE, BUT SAID SHE IS READY FOR GOD TO TAKE HER BUT IT'S NOT HER TIME YET. BED LOW, CALL LIGHT IN REACH.
--- NOTE | 2023-04-03 02:42 | NUR ---
END OF SHIFT SUMMARY PT A&O x2-3. PT CALM AND COOPERATIVE WITH CARE PROVIDED. PT ON COMFORT CARE. Q2 TURNS/REPOSITIONING. PT SLEPT WELL OVER NIGHT, NO EVENTS OCCURRED. PT REQUESTED PRN MEDICATION AT 2100 MEDICATION PASS. PRN ATIVAN, MELATONIN, ROXANOL AND RESTORIL GIVEN. FREQUENT SAFETY CHECKS COMPLETED THROUGHOUT SHIFT. PT STILL ON 4L VIA NC. RESP RATE EVEN, UNLABORED, YET SHALLOW. PT DENIED PAIN/DISCOMFORT DURING HEAD-TO-TOE ASSESSMENT. CALL LIGHT WITHIN REACH, WCTM.
--- NOTE | 2023-04-03 15:44 | NUR ---
SHIFT SUMMARY MS FRANKLIN HAS BEEN A LITTLE MORE SLEEPY TODAY THAN YESTERDAY. SHE DID HAVE SOME SOB THIS MORNING AFTER GETTING CHANGED AND TURNING SEVERAL TIMES IN BED. SYMPTOMS DECREASED WITH MEDICATIONS BUT SHE HAS HAD ONE MILDER EPISODE OF SOB THIS AFTERNOON. ON 4L N/C. SHE HAS DENIED ANY PAIN. TURNING WELL IN BED WITH ASSISTANCE. BED LOW, CALL LIGHT IN REACH.
--- NOTE | 2023-04-04 03:09 | NUR ---
END OF SHIFT SUMMARY PT SLEPT WELL OVERNIGHT. PT KEPT COMFORTABLE, PT REPOSITIONED THROUGHOUT THE SHIFT. PT ON 4L VIA NC, PT APPEARS TO BE BREATHING EASILY, RESP RATE EVEN AND UNLABORED. LUNGS DIMINISHED AT BILAT BASES. PAIN/ANXIETY MANAGED WITH ATIVAN, MELATONIN, RESTORIL AND PO MORPHINE. MEDICATIONS EFFECTIVE. FREQUENT SAFETY CHECKS COMPLETED. PUREWICK IN PLACE. CALL LIGHT WITHIN REACH, WCTM.
--- NOTE | 2023-04-04 15:41 | NUR ---
SHIFT SUMMARY PT RESTING QUIETLY AT START OF SHIFT. PER SHIFT REPORT, PT ON COMFORT CARE. TAKES MEDS WHOLE WITH ENSURE. MEDICATED FOR C/O PAIN NEEDED, PER EMAR. PT ABLE TO CALL FOR NEEDS. PT WAITING FOR D/C TO [facility]ENT[facility] CARE ON HOSPICE. PURWICK IN PLACE, PER PT REQUEST. CALL LT IN REACH.
--- NOTE | 2023-04-05 04:23 | NUR ---
SHIFT SUMMARY: PT IS ADMITTED FOR CHRONIC RESPIRATORY FAILURE AND IS A DNR. IS ALERT AND ABLE TO MAKE NEEDS KNOWN. ADL S WERE 2P FOR MOST ACTIVITIES AND SHE DID NOT GET OUT OF BED THIS SHIFT. DENIES PAIN OR DISCOMFORT WHEN ASKED.
--- NOTE | 2023-04-05 15:45 | NUR ---
SHIFT SUMMARY PT RESTING QUIETLY AT START OF SHIFT. REMAINS ON COMFORT CARE. WOKE EASILY FOR BREAKFAST. ABLE TO FEED HERSELF WHAT SHE WANTS. DRINKS ENSURE'S THRU OUT THE DAY. MEDICATED PER EMAR FOR C/O PAIN. DR CAMARILLO HERE THIS AM TO CK ON PT. NEW ORDERS PLACED. PT CLEANED AND CHANGED NEEDED. REPOSITIONED FOR COMFORT. CALL LT IN REACH, ABLE TO MAKE NEEDS KNOWN. CONTINUES TO WAIT FOR CARE HOME CARE PLACEMENT ON HOSPICE.
--- NOTE | 2023-04-05 16:54 | NUR ---
Spiritual care visit conducted. Patient immediately talks about her frustration about still being alive. She doesn't mind sleeping and interactions with people but the rest of life feels painful a nd without purpose. We again explore sources of meaning, value and goodness. PAtient is able to laugh a little at herself and is able to find some good in her life. I encourage self- care, reinforce helpful attitudes and practices and provide therapeutic listening and prayer. Patient responded well and showed signs of more energy towards life and living.
--- NOTE | 2023-04-06 04:00 | NUR ---
SHIFT SUMMARY: PT IS ADMITTED FOR CHRONIC RESPIRATORY FAILURE AND IS A DNR. IS ALERT AND ABLE TO MAKE NEEDS KNOWN. ADL S HAVE BEEN 2P MIN MOST MOST ACTIVITIES DID NOT GET OUT OF BED THIS SHIFT.
--- NOTE | 2023-04-06 11:34 | NUR ---
Comfort Care Visit Pt resting in bed with her eyes closed upon arrival. Pt appears comfortable with no S/S of distress at this time. Pt left undisturbed at this time. Spoke with Primary RN Stanley and discussed case. Current regimen managing symptoms. No concerns reported at this time. Palliative Care will remain available
--- NOTE | 2023-04-06 18:33 | NUR ---
SUMMARY- PT A/O X2-3, BEDREST, ROUTINE TURNS. PT USES CALL LIGHT TO MAKE NEEDS KNOWN. PUREWICK IN USE. MEPILEX CHANGED TO BOTTOM THIS AM. PT MEDICATED FOR BACK PAIN ROXANOL, HELPFUL TO RELEIVE PAIN. FEEDS SELF MEALS WITH SET UP. EATS 25% EACH MEAL AND TAKING IN SMALL AMOUNTS OF FLUIDS. AWAITING INSURANCE APPROVAL FOR PLACEMENT
--- NOTE | 2023-04-07 06:31 | NUR ---
SHIFT SUMMERY. PT MEDICATED FOR PAIN AT AROUND 2130 PT SLEEPING THROUGH THE NIGHT. PT HAS PURE WICK ON. CALL LIGHT IN REACH .
--- NOTE | 2023-04-07 17:36 | NUR ---
SHIFT SUMMARY Pt remains A&Ox3, forgetful at times. Comfort care measures in place. Denies pain. Repositioned for comfort. Resp even nonlabored on 4L NC. Purewick in place. BM today. Mepilex changed to buttocks. Pt able to feed self with set up. Pain and safety maintained. Call light in reach. Will continue to monitor this shift.
[2023-04-07 19:28] VITALS: BP 106/61
--- NOTE | 2023-04-08 02:18 | NUR ---
SHIFT AFSHAN, AT BEGING IN OF SHFT PT CALLING EVERY FEW MIN, TO HAVE HERD UP, MORE PILLOWS , TURN OFF LIGHT AND SO ON. PT REQUESTING HER HS MEDS EARLY. PT GIVENHER MEDS , PURE WICK CHANGED DEPENDS CHANGED. PT REQUESTING FRESH POP AND WATER. BOTH BROUGHT FOR PT. BED ALARM ON PT HAS MULTIPLE PILLOWS FOR COMFORT AND PREVENTION. CALL LIGHT IN REACH. PT SEEMS TO BE VERY COMFORATYBLE RESPERATIONS EVEN AND UNLABORED. NC AT 4L.
--- NOTE | 2023-04-08 17:34 | NUR ---
SHIFT SUMMARY: Pt remains alert and oriented this shift. Slept most of day with exception of meals. Repositioned frequently. Purewick in place. Pain and safety maintained this shift. Will continue to monitor.
--- NOTE | 2023-04-09 03:40 | NUR ---
SHIFT AFSHAN, PT GIVEN HS MEDS AND REQUESTED ATIVAN AND HER MS AT BEDTIME. NOT TIME FOR HER MS BUT GIVEN OTHER MEDS AND PT FELL ASLEEP. PT SEEMING TO BE SLEEPING WEL RESP UNLABORED AND REGULAR. PT AAAAAAWOKE A LITTLE WHILE AGO AND REQUESTED ANXIETY MED AND PAIN MED, PT MEDIACTED AND WAS CHNGED AND REPAOSITIONED, PURE WICK REPLACED DWITH NEW ONE. CALL LIGHT IN REACH BED ALARM ON.
--- NOTE | 2023-04-09 17:15 | NUR ---
DAYSHIFT SUMMARY Patient alert & oriented x4, pleasant and cooperative.No acute changes to patient status. Patient c/o generalized pain & anxiety this shift, medicated with roxinol & ativan. Poor meal intake, but patient accepting ensure and drinks. Will continue plan of care, awaiting discharge planning.
--- NOTE | 2023-04-10 06:34 | NUR ---
SHIFT SUMMARY PT SLEPT MOST OF THE SHIFT. WOKE AROUND 0600 ASKING WHAT DAY IT WAS AND WHAT TIME. I TOLD HER THE DAY AND TIME AND SHE RESPONDED WITH "I DIDN'T MISS BREAKFAST THEN". PT STS SHE IS A LITTLE BIT HUNGRY, BUT WILL WAIT FOR BREAKFAST. PT GIVEN WATER AND A SMALL PEPSI AT THIS TIME. PT ALSO GIVEN ROXANOL FOR PAIN AT THIS TIME. PT HAS NO OTHER COMPLAINTS OR NEEDS. PT HAS CALL LIGHT WITHIN HER REACH.
--- NOTE | 2023-04-10 19:17 | NUR ---
Pt having periods of greater aggiation. stating she want to take a pill that would make her . gentle conversation to help her relax. pt my be transtionining will continue to monitor.
--- NOTE | 2023-04-10 20:10 | NUR ---
SHIFT SUMMARY NO ACUTE CHANGES. PT ON 4L O2 NC. PT HAVING EPISODES OF AIR HUNGER AND MARKED CONFUSION. PT DENYING PAIN. PALLIATIVE CARE NURSE CAME TO BEDSIDE PER PT REQUEST FOR ASSISTED INSTEAD OF HOSPICE. PER PALLIATIVE CARE NURSE MUTIPLE CONVERSATIONS OVER PAST FEW DAYS. GAVE ROXANOL FOR AIR HUNGER WITH GOOD EFFECT.
--- NOTE | 2023-04-11 05:38 | NUR ---
NOC SHIFT SUMMARY: PATIENT BECOMES VERY SHORT OF BREATH WHEN TURNED. PATIENT ALERT AND ORIENTED X4 BUT CAN BE FOREGETFUL. PUREWICK IN PLACE, SOMETIMES LEAKS INTO ATTENDS. POSSIBLE PLACEMENT WITH HOSPICE AT SOME POINT. CALL LIGHT WITHIN REACH. BED IN LOW POSITION.
--- NOTE | 2023-04-11 16:02 | NUR ---
Spiritual care visit conducted. Patient is excited to tell me that she is decided against the with dignity option and has live out her remaining years no matter how many yrs there are and to find the good and wonder in them as she goes along. I applaud her decision and add that the emotional and physical toll to go through the process of with dignity will be avoided and that she can now make her focus be on the purpose of living and not dying. She is more joyful today than I have seen her since her admission to the hospital. We also discuss the good opportunities associated with adult foster care and assisted living. I provide therapeutic listening and prayer. Patient responded well and showed signs of increased peace and evelyn. I will continue to remain available to patient and family.
--- NOTE | 2023-04-11 17:31 | NUR ---
SHIFT SUMMARY PT A&OX4 AND PLEASANT. PT REPORTED FEELING ANXIOUS THIS MORNING D/T POSSIBLE INTERVIEW FOR PLACEMENT WITH HOSPICE. PT MEDICATED PER EMAR. PT ALSO VERBALIZED FEELING SAD AND THAT SHE DIDN'T HAVE ANYTHING TO LIVE FOR. THIS NURSE AND [employer] SUPERVISOR SAT WITH PT FOR FOR SOME TIME AND LISTENED TO PT'S CONCERN. SPIRITIAL CARE WAS CALLED AND LUIS ARMANDO SPOKE WITH PT FOR SOME TIME. PT REPORTED FEELING MORE OPTOMISTIC AFTER TALKING WITH LUIS ARMANDO. PT C/O PAIN IN AFTERNOON. MEDICATED PER EMAR. PT ABLE TO PASS LARGE BM. VERY SMALL APPETITE WITH LITTLE FOOD INTAKE TODAY. FOAM DRESSINGS CHANGED ON COCCYX AND RIGHT HIP. BED IN LOWEST POSITION AND CALL LIGHT IN REACH.
--- NOTE | 2023-04-11 18:31 | NUR ---
pt more labile. cahplian in to speak with her about her life. Will continue supportive visits.
--- NOTE | 2023-04-12 05:05 | NUR ---
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 MORPHINE GIVEN AT SHIFT CHANGE. PUREWICK IN PLACE. AWAITING [facility] MEDICAID FOR HOSPICE PLACEMENT. POSSIBLY BY THE END OF THE WEEK. CALL LIGHT WITHIN REACH. BED IN LOW POSITION.
--- NOTE | 2023-04-12 16:12 | NUR ---
Spiritual care visit conducted. Patient is in a upbeat mood again today. I provide music therapy type of music and hear of happy memories from when she was young even in the midst of loss and struggle. Patient has overcome much in life and is to be celebrated. I provide therapeutic listening and prayer. Patient responded well to all interventions and showed signs of increase evelyn.
--- NOTE | 2023-04-12 17:02 | NUR ---
SHIFT SUMMARY NO ACUTE EVENTS DURING SHIFT. PATIENT MEDICATED FOR PAIN PER EMAR WITH GOOD RELIEF, DENIES ANY SHORTNESS OF BREATH THROUGHOUT DAY ON 4LPM NC. BED IN LOW POSITION. CALL LIGHT IN REACH. PATIENT CALLING APPROPRIATELY. BED ALARM ON DUE TO PATIENT FORGETFUL AT TIMES. WILL CONTINUE TO MONITOR.
--- NOTE | 2023-04-13 | NUR ---
PT T/F'D TO ROOM 310 AT 2331. SHE DENIES PAIN AND COMPLAINTS, WAS ORIENTED TO NEW ROOM AND SURROUNDINGS AND WAS GIVEN CALL LIGHT IN REACH. PT MOVED ONTO AN AIRBED W/PILLOWS PLACED FOR COMFORT. THIS RN AGREES TO PREVIOUS COMFORT CARE ASSESSMENT FINDINGS.
--- NOTE | 2023-04-13 04:48 | NUR ---
SUMMARY: PT REMAINS ON COMFORT CARE AND WAS T/F'D FROM [facility] to [facility] AND PLACED ON AIRBED FOR SBD PREVENTION. MEPILEXES REMAIN C/D/I TO BUTTOCKS AND R.HIP WOUND. PILLOW PLACE FOR ADDITIONAL SUPPORT. SHE RECIEVED ROXINOL AND RESTORIL FROM PRIOR RN AT FOR GENERALIZED PAIN AND TO PROMOTE REST. SHE'S BEEN COMFORTABLY SLEEPING SINCE W/O COMPLAINTS OR CONCERNS. PURE WIC REMAINS INTACT DRAINING CLEAR YELLOW URINE. SHE'S ON 4L O2 VIA NC (5L IS BASELINE). NO ACUTE CHANGES. WCTM AND REPORT TO DAY RN.
--- NOTE | 2023-04-13 14:49 | NUR ---
Spiritual care visit conducted. Patient is lying in bed and resting but easily awakens to the sound of her name. She explains about the visit that she had from someone from an adult foster home and she explains that it was not quite the right fit but that she will have another visit from another facility soon. She complains about her new bed in the new room that she is moved to in the hospital but states that the medical staff have been very mindful of her and will finding her a more comfortable soon. She asks for prayer for the right arrangement to emerge soon. I gladly provided prayer. PAtient responded well and voiced her gratitude. I will continue to remain available.
--- NOTE | 2023-04-13 17:18 | NUR ---
SHIFT SUMMARY- PT IS A/O, PLESANT AND COOPERATIVE. SHE SLEPT THIS AFTERNOON. SHE C/O DISCOMFORT AND REQUESTED A NEW BED, SWITCHED HER AIR BED FOR A REGULAR BED SHE REPORTED THAT THIS WAS MUCH MORE COMFORTABLE. SHE HAS A PUREWIC IN PLACE AND IS DRAINING TO SUCTION. HER BED IS IN THE LOW POSITON AND CALL LIGHT IS WITHIN REAH.
--- NOTE | 2023-04-14 07:57 | NUR ---
SHIFT SUMMARY. PATIENT A/OX4. C/O PAIN AND INSOMNIA-MEDICATED PER EMAR. PATIENT SLEPT WELL. PUREWICK IN PLACE. PATIENT FLOATED AND REPOSITIONED. BED IS LOCKED IN THE LOWEST POSITION WITH CALL LIGHT IN REACH.
--- NOTE | 2023-04-14 11:50 | NUR ---
Spiritual care visit conducted. Patient is lying in bed and resting but easily awakens to the sound of her name. She tells me about her disappointment over not having an adult foster skilled nursing lined up to move to. I also facilitate a discussion about reconciling some relationships that continue to weigh heavily on her heart. I provide therapeutic listening and prayer. Patient responded well and showed signs of greater peace about the possiblity of having some tension lifted up off her mind. I will continue to remain available to patient and family.
[2023-04-14 15:40] VITALS: BP 109/51
--- NOTE | 2023-04-14 16:27 | NUR ---
COMFORT CARE, MAKES NEEDS KNOWN, ALERT AND ORIENTED X4, REPOSITIONS SELF IN BED, REFUSES TO BE MOVED MORE, LS DIMINISHED, HYPOACTIVE BT, 10 MG AIYANA GIVEN, VSS, DNR BAND ON, CALL LIGHT WITH IN REACH, NO ACUTE CHANGES, WILL RELAY TO PM RN
--- NOTE | 2023-04-14 16:31 | NUR ---
PATIEINT EDUCATED ON FIRESAFETY, PROTOCOL AND DENIED ANY IGNITION DEVICES ON PERSONS, PATIENT CONTINUES TO REFUSE NICOTINE PATCH
--- NOTE | 2023-04-15 04:41 | NUR ---
SHIFT SUMMARY PATIENT IS PLEASANT AND ABLE TO MAKE HER NEEDS KNOWN. PATIENT C/O PAIN AND INSOMNIA-MEDICATED PER EMAR. PUREWICK IN PLACE. PATIENT ABLE TO SHIFT POSITIONS IN BED. BED IS LOCKED IN THE LOWEST POSITION WITH CALL LIGHT IN REACH.
--- NOTE | 2023-04-15 08:43 | NUR ---
Spiritual care visit conducted. Prayer and encouragement provided. Patient responded well and showed signs of an elevated mood.
[2023-04-15 13:23] LABS: Influenza A, PCR NEGATIVE (NEGATIVE); Influenza B, PCR NEGATIVE (NEGATIVE); Resp Syncytial Virus, PCR NEGATIVE (NEGATIVE); SARS-Cov-2 (COVID-19) PCR, MMC NEGATIVE (NEGATIVE)
[2023-04-15] MEDS ORDERED: Acetaminophen650 M1 PO (14:21)
[2023-04-15] MEDS ORDERED: LORA.5 PO (14:24)
[2023-04-15] MEDS ORDERED: MELA3 PO (14:26)
[2023-04-15] MEDS ORDERED: DULCOLAX400 MG/5 M PO (14:26)
[2023-04-15] MEDS ORDERED: MORP20L SL (14:27)
[2023-04-15] MEDS ORDERED: Nicoderm Cq1 EACH TOP (14:27)
[2023-04-15] MEDS ORDERED: MIRALAX17 GM PO (14:29)
[2023-04-15] MEDS ORDERED: PANT20 PO (14:29)
[2023-04-15] MEDS ORDERED: TEMA15 PO (14:30)
--- NOTE | 2023-04-15 16:00 | NUR ---
SHIFT/DISCHARGE SUMMARY Pt remains A&Ox3 this shift. Denies pain. Repositioned Q2 hour. Pt with decreased appetite. Purewick in place for urine output. Report called to [facility] at [facility] for hospice care. Pt transported via stretcher with all belongings and spouses ashes.
== END 2023-04-15 16:30 | disposition hospice, home (50) | DRG 189 ==
LOC: ER 11:59 → PCU 14:19 → MEDS 14:19 → PCU 16:41 → MEDS 03-14 18:11 → ENPENDDIS 04-15 11:55 → MEDS 04-15 16:30
PROVIDERS: Family Medicine; Internal Medicine; Student in an Organized Health Care Education/Training Program; ADMIT Hospitalist
PROC: 5A09357 Assistance with Respiratory Ventilation, Less than 24 Consecutive Hours, Continuous Positive Airway Pressure (ICD-10-PCS; principal; 2023-03-11)
PROC: 30233N1 Transfusion of Nonautologous Red Blood Cells into Peripheral Vein, Percutaneous Approach (ICD-10-PCS; 2023-03-11)
DX: J96.21 Acute and chronic respiratory failure with hypoxia (principal); E43 Unspecified severe protein-calorie malnutrition; D62 Acute posthemorrhagic anemia; J44.1 Chronic obstructive pulmonary disease with (acute) exacerbation; N17.9 Acute kidney failure, unspecified; I50.32 Chronic diastolic (congestive) heart failure; I42.2 Other hypertrophic cardiomyopathy; K92.1 Melena; Z68.1 Body mass index [BMI] 19.9 or less, adult; J96.22 Acute and chronic respiratory failure with hypercapnia; Z51.5 Encounter for palliative care; Z66 Do not resuscitate; I48.91 Unspecified atrial fibrillation; F41.9 Anxiety disorder, unspecified; K44.9 Diaphragmatic hernia without obstruction or gangrene; I27.20 Pulmonary hypertension, unspecified; R73.9 Hyperglycemia, unspecified; I35.0 Nonrheumatic aortic (valve) stenosis; R54 Age-related physical debility; N18.30 Chronic kidney disease, stage 3 unspecified; K21.9 Gastro-esophageal reflux disease without esophagitis; D63.1 Anemia in chronic kidney disease; E87.5 Hyperkalemia; Z99.81 Dependence on supplemental oxygen; Z79.01 Long term (current) use of anticoagulants; Z79.51 Long term (current) use of inhaled steroids; Z79.52 Long term (current) use of systemic steroids; Z79.82 Long term (current) use of aspirin; Z11.52 Encounter for screening for COVID-19; Z72.0 Tobacco use
CPT/HCPCS: 0202U; 0241U; 36415; 36430; 71045; 80048; 80053; 80069; 81001; 82272; 82607; 82728; 82746; 82803; 83540; 83550; 83735; 84443; 85014; 85018; 85025; 85610; 85730; 86850; 86900; 86901; 86920; 86923; 93005; 93010; 94640; 94644; 94645; 94660; 94664; 94760; 94762; 96361; 96365; 96366; 96375; 97110; 97161; 99285-25; A9270; C1751; C9113; J0456; J0696; J1815; J2930; J7030; J7050; J7512; J7799; P9016